=== PATIENT | female | born 1950 | race Caucasian/White ===

== ENCOUNTER 2022-03-15 06:27 | Day surgery (SDC) | payer OTHER ==
[2022-03-15] MEDS ORDERED: NA CHLORIDE 0.9% 1,000 ML ONE (06:46)
[2022-03-15] MEDS ORDERED: CEFAZOLIN 3 GM in NA CHLORIDE 0.9% 100 ML IVPB SCH (07:00)
[2022-03-15] MEDS ORDERED: propofoL 200 MG/20 ML VIAL IV ONE (07:05)
[2022-03-15] MEDS ORDERED: FENTANYL CITR 100 MCG/2 ML ONE (07:05)
[2022-03-15] MEDS ORDERED: ROCURONIUM 50 MG/5 ML VIAL IV ONE (07:06)
[2022-03-15] MEDS ORDERED: MIDAZOLAM HCL 2 MG/2 ML INJ ONE (07:06)
[2022-03-15] MEDS ORDERED: dexAMETHasone 4 MG/ML VIAL ONE (07:10)
[2022-03-15] MEDS ORDERED: ONDANSETRON 4 MG/2 ML VIAL ONE ×2 (07:10→10:15)
[2022-03-15] MEDS ORDERED: LIDOCAINE 2% MPF 5 ML VIAL ONE (07:10)
[2022-03-15] MEDS ORDERED: BUPIVACAINE 0.25% PF 30 ML VIAL ONE (07:20)
[2022-03-15] MEDS: BUPIVACAINE 0.25% PF 30 ML VIAL ONE ×3 (08:10→09:10)
[2022-03-15] MEDS ORDERED: Phenylephrine HCl 10 MG/ML 1 ML VIAL ONE (08:34)
[2022-03-15] MEDS ORDERED: KETOROLAC 30 MG/ML INJ ONE (09:15)
--- NOTE | 2022-03-15 09:57 | P.BOP ---
Preoperative diagnosis: refractory OAB Postoperative diagnosis: same Primary procedure: Interstim Stg1, insertion of quadripolar tined lead under fluoro Filer Metal Patterns: NONE,NONE Estimated blood loss: min Specimen: none Findings: Interstim stage 1 Rt S3, external lead exit same side, Prone Anesthesia: General Complications: None Implants: tined quadripolar lead, external connector to neuromodulator Transferred to: Recovery Room Condition: Good
[2022-03-15 10:08] VITALS: O2SAT 96
--- NOTE | 2022-03-15 10:14 | RAD REPORT ---
EXAM DESCRIPTION: RAD - Fluoroscopy <1 Hour - 03/15/2022 9:46 am CLINICAL HISTORY: Device placement central venous catheter placement FINDINGS: Intraoperative fluoroscopy given for Sacral Neural modulation The examination was performed by Dr. Madison Fluoroscopy time 0.7 minutes. Twenty intraoperative fluoroscopic spot images obtained
[2022-03-15 11:20] VITALS: BP 119/66; TEMP 97
[2022-03-15] MEDS ORDERED: GABAPENTIN 300 MG CAP PO SCH (14:00)
[2022-03-15] MEDS ORDERED: HOME MED 1 EA UNK (Metformin Hcl [Metformin Er Gastric] 1,000 MG Tabergr24h) PO SCH (21:00)
[2022-03-15] MEDS ORDERED: icosapent ethyL 1 GM CAP PO SCH (21:00)
--- NOTE | 2022-03-15 21:28 | OP ---
Date of Procedure: 03/15/2022 Surgeon: Estela Hughes MD Salt Washer: None. Preoperative Diagnosis: Refractory overactive bladder. Postoperative Diagnosis: Refractory overactive bladder. Procedures Performed: InterStim nerve stimulation stage I, which is incision and implantation of tin ed quadripolar leads into S3 foramen with fluoroscopic guidance for needle placement. Anesthesia: General endotracheal. Specimen: No specimens. Complications: No complications. Drain: No drains. Estimated Blood Loss: Minimal. Implants: Quadripolar tined-lead and the temporary external connection for the battery. Condition: Stable. Findings: Right S3 foramen was used for the lead placement, all 4 electrodes were working with good liss and plantar flexion of the toe. Leads 2, 3, and 4 which are the 3 distal leads had very good response with toe and liss where as the lead 1 had better toe with no liss at the lower settin g. Position check was done with AP and lateral views and it was optimal. Description Of Procedure: The patient is a 71-year-old female with refractory overactive bladder. S he also has stress urinary incontinence. She has been tried on first and second-line therapy without any response and was offered both Botox as well as sacral neuromodulation. InterStim weighs more be neficial than the Botox with lower risk of retention intermittent self catheterization which patient has done, preferred to avoid, and she consented for the procedure and brought to the OR. A 3 g of An cef were given. SCDs were placed. Consent was re-verified in the preoperative area and the patient was taken back to the procedure room. She was placed in a supine fashion and after general endotrach eal anesthesia was given, she was placed in a prone position on the operating table with the buttocks exposed, as well as the feet. The skin prep was done with ChloraPrep prior to sterile draping. After time-out was done and position check was performed, the procedure were started. The table was set up for fluoroscopic guidance. The C-arm was moved into position in the anterior-posterior direction, and the mapping of the sacral region was performed including the midline of the sacrum, SI joint, sciatic notches and medial forami nal borders, and sacral foramina. Then, it was moved to the lateral position to image the sacral pro montory to the coccyx. The patient was slightly airplaned to her right due to her pannus and the pos itioning. Local 1% lidocaine was injected 10 cc at 2 sites on the left and the right of the S3 area. Surface m arkings were done 9 cm proximal and 11 cm proximal to the coccyx, 2 cm lateral to the midline on both sides. These were the tentative areas for use for needle insertion. The foramen needle was introduced at the 11 cm tommy, 2 cm lateral to the midline feeling for the fora rodrigo margins until foramina was identified and penetrated. The depth of the needle was confirmed an d adjusted fluoroscopically. This appeared to be slightly lower than the S3. This was confirmed by just observation of bellowing without any plantar flexion using the external test stimulator. After attempting to go 2 cm proximal to this needle entry through this end, the needle was placed par allel in the lateral midline to the prior needle. S3 foramen was entered and test stimulation was pe rformed. This was very difficult and that was not an adequate. There was no response either in the liss or the toes. Possible slight rotation of the limb was observed, so went on to the right late ral margin at a similar location as the original needle placement on the left side. Once the fragmen t was entered, AP and lateral views were taken. This appeared to be in position. Testing was performed. There were clear liss bed response and plantar flexion was nonexistent. The needle was removed from the left side and advanced 2 cm proximal to the current needle, and after the S3 foramen was palpated and entered, AP and lateral views were taken. Once the needle tip was a t a good location, testing was performed and there was great response of bellowing, as well as the pl handy flexion on the right side. The needle stylet was then removed and a directional guide was plac ed and confirmed fluoroscopically. The foramen needle was then removed. Incision was made peripherally to the directional guide through the fascial layer. Then, the lead in troducer sheath with dilator was placed over the directional guide, and then, guided into the foramen ensuring radiopaque marker. The introducer did not extend beyond the anterior to the sacrum under d irect fluoroscopy. Dilator was then unlocked and removed along with the directional guide. The lead was then placed through the introducer sheath to the first line. Position was checked fluoroscopica lly. Then, the lead was further introduced until 3 electrodes were visible below the sacrum the four th straddling the anterior surface. Each electrode was tested for location, visualization of liss and plantar flexion of the great toe. After satisfactory positioning was confirmed, the distally sh owing mostly plantar flexion of the toe. The introducer sheath was then retracted under continuous f luoro, deploying the tined leads into the presacral tissue. Further incision was made in the subcutaneous tissue posterior to the iliac crest on the same side of the lead placement which is the right lateral buttock. Injection with lidocaine was done in 2 sides which was the battery side, as well as the exit of the external lead. The incisions were made with a 15 blade. Dissection was performed down to the subcutaneous tissues with the Bovie. Blunt dissect ion was performed. Hemostasis was secured here to create space for the future battery. A tunneling tool with a straw was placed from the lead exit site subcutaneously to the incised pocket site. The tunneling tool was removed and the lead was fed through the straw and pulled out through the pocket site. The lead was then , bodily fluid, dried, and protected and this was place d over the leads. The lead was inserted into the temporary percutaneous extension and the metal band s were aligned. The 4 set screws were tightened with a hex wrench. The boot was pushed over the con nection and 2 passes were sutured to the boot grooves on either side of the connection. A tunnel was made subcutaneously and exited to a puncture site above the contralateral buttock. The percutaneous extension was then placed through the straw and exposed and connected to the Twist-Lock grade cable. The wounds were irrigated with antibiotic solution and water, and closed with the help of 3-0 chromic subcutaneous sutures x2 that are interrupted and continuous running skin sutures that are subcuticular. Counts were correct. Dermabond was placed, 4x4s, gauze. Tegaderm was then applie d over all these incisions and gauze was placed under the Twist-Lock cable connector. EBL was minima l. The patient was transferred to the recovery room in satisfactory condition. Using the external t est stimulator, the patient was programmed to the electric optimal sensation and given instructions o n utilizing the external test stimulator prior to discharge. Diary will be kept until return appoint ment to my office with Monday to discuss results of this test. The patient tolerated the procedure w ell. ARIN/JESSICA Voice ID: [id number] Report ID: [id number]
[2022-03-16] MEDS ORDERED: ESTROGENS,CONJ VAG CREAM VAG SCH (09:00)
[2022-03-16] MEDS ORDERED: HOME MED 1 EA UNK (Linagliptin [Tradjenta] 5 MG Tablet) PO SCH ×2 (09:00)
[2022-03-16] MEDS ORDERED: B2 PO SCH (09:00)
[2022-03-16] MEDS ORDERED: HOME MED 1 EA UNK (Vit D3/Vit K2/Calc Frutoborate [Move Free Ultra-Borate-K2-D3] Tablet) PO SCH (09:00)
[2022-03-16] MEDS ORDERED: ASPIRIN EC 81 MG TAB PO SCH (09:00)
[2022-03-16] MEDS ORDERED: HOME MED 1 EA UNK (Rabeprazole Sodium [Rabeprazole Sodium] 20 MG Tablet.Dr) PO SCH (09:00)
[2022-03-16] MEDS ORDERED: VIT B6 PO SCH (09:00)
[2022-03-16] MEDS ORDERED: LEVOMEFOLATE PO SCH (09:00)
[2022-03-16] MEDS ORDERED: ROSUVASTATIN 10 MG TAB PO SCH (09:00)
[2022-03-16] MEDS ORDERED: HOME MED 1 EA UNK (Potassium Citrate [Potassium] 99 MG Capsule) PO SCH (09:00)
[2022-03-16] MEDS ORDERED: HOME MED 1 EA UNK (Omega-3/Dha/Epa/Fish Oil [Fish Oil 1,000 Mg Softgel] Capsule) PO SCH (09:00)
[2022-03-16] MEDS ORDERED: FUROSEMIDE 40 MG TABLET PO SCH (09:00)
[2022-03-16] MEDS ORDERED: HOME MED 1 EA UNK (Losartan Potassium [Losartan Potassium] 100 MG Tablet) PO SCH (09:00)
[2022-03-16] MEDS ORDERED: VIT B12 PO SCH (09:00)
== END 2022-03-15 11:15 | disposition home or self-care (01) ==
LOC: OR 06:27
PROVIDERS: ATTEND Obstetrics & Gynecology
PROC: 01HY3MZ Insertion of Neurostimulator Lead into Peripheral Nerve, Percutaneous Approach (ICD-10-PCS; principal; 2022-03-15 07:30)
DX: N32.81 Overactive bladder (principal)
CPT/HCPCS: 82947 ×2; 64561; J2704; J1100; J2370; J2001; J2250; J3010; J7030; J2405 ×2; J0690; 76000

== ENCOUNTER 2022-03-29 05:52 | Day surgery (SDC) | payer OTHER ==
[2022-03-29] MEDS ORDERED: NA CHLORIDE 0.9% 1,000 ML ONE (06:11)
[2022-03-29] MEDS ORDERED: FENTANYL CITR 100 MCG/2 ML ONE (06:47)
[2022-03-29] MEDS ORDERED: LIDOCAINE 2% MPF 5 ML VIAL ONE (06:47)
[2022-03-29] MEDS ORDERED: propofoL 200 MG/20 ML VIAL IV ONE ×2 (06:47→07:29)
[2022-03-29] MEDS ORDERED: MIDAZOLAM HCL 2 MG/2 ML INJ ONE (06:47)
[2022-03-29] MEDS: LIDOCAINE 1% 20 ML MDV ONE ×2 (06:51→07:27)
[2022-03-29] MEDS ORDERED: CEFAZOLIN 2 GM in NA CHLORIDE 0.9% 100 ML IVPB SCH (07:00)
[2022-03-29] MEDS ORDERED: CEFAZOLIN 3 GM in NA CHLORIDE 0.9% 100 ML IVPB SCH (07:00)
[2022-03-29] MEDS ORDERED: IBUPROFEN 200 MG TAB PO PRN (08:14)
[2022-03-29] MEDS ORDERED: HYDROCODONE/APAP 5/325 MG TAB PO PRN (08:14)
--- NOTE | 2022-03-29 08:17 | P.BOP ---
Preoperative diagnosis: refractory OAB Postoperative diagnosis: same Primary procedure: Stage 2 Interstim (insertion of neuromodulator)and programming Estimated blood loss: min Specimen: none Findings: posket on the right buttock, lead same side Anesthesia: MAC Complications: None Implants: Interstim neuromodulator Transferred to: Recovery Room Condition: Good
[2022-03-29] MEDS ORDERED: IBUPROFEN 400 MG TAB ONE (08:31)
[2022-03-29] MEDS ORDERED: IBUPROFEN 200 MG TAB PO ONE (08:31)
[2022-03-29] MEDS ORDERED: HOME MED 1 EA UNK (Potassium Citrate [Potassium] 99 MG Capsule) PO SCH (09:00)
[2022-03-29] MEDS ORDERED: HOME MED 1 EA UNK (Vit D3/Vit K2/Calc Frutoborate [Move Free Ultra-Borate-K2-D3] Tablet) PO SCH (09:00)
[2022-03-29] MEDS ORDERED: HOME MED 1 EA UNK (Metformin Hcl [Metformin Er Gastric] 1,000 MG Tabergr24h) PO SCH (09:00)
[2022-03-29] MEDS ORDERED: ESTROGENS,CONJ VAG CREAM VAG SCH (09:00)
[2022-03-29] MEDS ORDERED: GABAPENTIN 300 MG CAP PO SCH (09:00)
[2022-03-29] MEDS ORDERED: HOME MED 1 EA UNK (Linagliptin [Tradjenta] 5 MG Tablet) PO SCH ×2 (09:00)
[2022-03-29] MEDS ORDERED: B2 PO SCH (09:00)
[2022-03-29] MEDS ORDERED: ROSUVASTATIN 10 MG TAB PO SCH (09:00)
[2022-03-29] MEDS ORDERED: HOME MED 1 EA UNK (Omega-3/Dha/Epa/Fish Oil [Fish Oil 1,000 Mg Softgel] Capsule) PO SCH (09:00)
[2022-03-29] MEDS ORDERED: LEVOMEFOLATE PO SCH (09:00)
[2022-03-29] MEDS ORDERED: HOME MED 1 EA UNK (Losartan Potassium [Losartan Potassium] 100 MG Tablet) PO SCH (09:00)
[2022-03-29] MEDS ORDERED: icosapent ethyL 1 GM CAP PO SCH (09:00)
[2022-03-29] MEDS ORDERED: VIT B6 PO SCH (09:00)
[2022-03-29] MEDS ORDERED: VIT B12 PO SCH (09:00)
[2022-03-29] MEDS ORDERED: FUROSEMIDE 40 MG TABLET PO SCH (09:00)
[2022-03-29] MEDS ORDERED: HOME MED 1 EA UNK (Rabeprazole Sodium [Rabeprazole Sodium] 20 MG Tablet.Dr) PO SCH (09:00)
[2022-03-29] MEDS ORDERED: ASPIRIN EC 81 MG TAB PO SCH (09:00)
[2022-03-29 09:10] VITALS: TEMP 97.9
[2022-03-29 09:11] VITALS: BP 120/58; O2SAT 100
--- NOTE | 2022-03-29 19:32 | OP ---
Date of Procedure: 03/29/2022 Surgeon: Estela Hughes MD Biostatistician: None. Preoperative Diagnosis: Refractory overactive bladder. Postoperative Diagnosis: Refractory overactive bladder. Procedure Performed: InterStim stage II incision and subcutaneous implantation of sacral nerve neuro stimulator with electronic analysis and programming. Anesthesia: MAC and local block. Complications: None. Specimen: None. Drains: None. Condition: Stable. Implants: InterStim neuromodulator. The patient's condition was good. Indications: The patient is a 71-year-old female with refractory overactive bladder. She had failed to have optimal treatment outcome after first and second line treatments for the overactive bladder. She underwent stage I and this was 2 weeks after the stage I where she had at least 75% improvement and wanted to proceed with stage II. She was consented and brought to the OR. Procedure In Detail: Ancef was given. SCDs were placed. After she was taken to the operating room and placed in a supine fashion on the operating table, MAC was given and she was placed in a prone po sition. Her back was prepped with ChloraPrep and draped in a sterile fashion. 1% lidocaine was used for local injection. The previous buttock pocket on the right buttock was opened using blunt dissection. After getting to the previous pocket, which appeared to be significantly more scarred, likely because of the 2 weeks' duration for her trial, was carefully opened up. Hemostasis was secured with electrocautery. The lead and percutaneous extension connections were identified and elevated. The percutaneous exten victor m was cut and removed from the field ensuring sterility. The subcutaneous pocket anterior to the muscle surface was enlarged and hemostasis was established again. The sutures holding the protective boot were cut and the protective boot was retracted. The set screws were exposed and loosened with a hex wrench and the boot was removed and discarded. The lead was cleansed off any body fluid and dried. The lead was inserted into the header of the Int erStim neuromodulator until the blue tip was visualized at the distal window. The single set screw w as tightened with 3 clicks. The neurostimulator was placed in a subcutaneous pocket with the etched identification side placed up wards and the excessive lead wrapped counterclockwise around the neurostimulator posteriorly. The pr ogramming head was placed over the implanted neurostimulator in a sterile cover to ensure adequate le ad connection and that the parameters are within normal limits. Impedances were confirmed to be with in normal limits greater than 50 and less than 4000. The wound was irrigated with antibiotic solution and water before the device was inserted and then th e pocket was closed with the help of a running 4-0 Vicryl suture and the skin was closed with a runni ng 4-0 Vicryl subcuticular sutures. Counts were correct. Steri-Strips were placed. 4 x 4 gauzes we re placed over the incision. The areas of all 3 incisions have slight erythema in the area that Derm abond was placed and almost looked like a local allergic reaction to this. So no plan to place [place] hernandez on the site there. The external stimulator was connected. This was closed with a simple 0 Vicr yl stitch without suture externally and this could be cut if need be at 2 to 3 weeks' postop. EBL was minimal. The patient was transferred to the recovery room in satisfactory condition. Using the clinician nicolás garcía, the generator was programmed for the pulse amplitude with 0.8 and the settings will be entere d into the clinic check. The total time spent for programming was less than 30 minutes. The patient was given instructions on utilizing the patient multimedia programmer prior to discharge. Final electrode sett ings are programmed for 0.8 amplitude. She has a 1-week follow in the office. Bladder log instructi ons were given appropriately. Local care was reviewed with the patient in 48 hours without showering and she will call with any questions. The procedure was discussed with the patient and her after she was awake. ARIN/JESSICA Voice ID: [id number] Report ID: [id number]
== END 2022-03-29 08:58 | disposition home or self-care (01) ==
LOC: OR 05:52
PROVIDERS: ATTEND Obstetrics & Gynecology
PROC: 0JH73BZ Insertion of Single Array Stimulator Generator into Back Subcutaneous Tissue and Fascia, Percutaneous Approach (ICD-10-PCS; principal; 2022-03-29 07:00)
DX: N32.81 Overactive bladder (principal); N39.3 Stress incontinence (female) (male); I10 Essential (primary) hypertension; E11.9 Type 2 diabetes mellitus without complications; E78.00 Pure hypercholesterolemia, unspecified
CPT/HCPCS: 82947; 64590; J2704 ×2; J2001 ×2; J2250; J3010; J7030; J0690

== ENCOUNTER 2022-04-19 10:58 | Observation (INO) | payer OTHER ==
[2022-04-14 12:09] LABS: Absolute Lymphocytes (CBC) 1.9 K/uL (0.7-4.9); Hematocrit 37.8 % (36.0-45.0); Lymphocytes % 33.2 % (15.3-44.8); MPV 8.5 fL (7.6-11.3)
[2022-04-14 12:13] LABS: Protime INR 0.96
[2022-04-14 12:22] LABS: Potassium 3.9 mmol/L (3.5-5.1)
[2022-04-14 12:36] LABS: Urine Bacteria None Seen /HPF (<20); Urine Bilirubin NEGATIVE (Negative); Urine Blood 1+ (Negative); Urine Clarity Clear (Clear); Urine Color Light-Yellow (Yellow); Urine Glucose NEGATIVE (Negative); Urine Mucus Slight /HPF (None Seen); Urine Protein 2+ (Negative); Urine RBC <5 /HPF (None Seen); Urine Urobilinogen Normal (Normal)
[2022-04-18 14:15] LABS: SARS-CoV-2 Antigen Rapid Res Negative (Negative)
[2022-04-19] MEDS ORDERED: NA CHLORIDE 0.9% 1,000 ML ONE (12:06)
[2022-04-19] MEDS ORDERED: propofoL 200 MG/20 ML VIAL IV ONE (12:13)
[2022-04-19] MEDS ORDERED: LIDOCAINE 2% MPF 5 ML VIAL ONE (12:13)
[2022-04-19] MEDS ORDERED: NS 0.9% VIAL 10 ML ONE (12:14)
[2022-04-19] MEDS ORDERED: VECURONIUM 10 MG/VIAL IV ONE (12:14)
[2022-04-19] MEDS ORDERED: FENTANYL CITR 250 MCG/5 ML ONE (12:14)
[2022-04-19] MEDS ORDERED: CEFAZOLIN SODIUM 1 GM/VIAL ONE (12:19)
[2022-04-19] MEDS ORDERED: NA CHLORIDE 0.9% 100 ML ONE (12:19)
[2022-04-19] MEDS ORDERED: VASOPRESSIN 20 UNIT/ML VIAL ONE (12:20)
[2022-04-19] MEDS ORDERED: SCOPOLAMINE HYDROBROMIDE PATCH TD ONE (12:24)
[2022-04-19] MEDS: CEFAZOLIN 3 GM in NA CHLORIDE 0.9% 100 ML IVPB SCH ×2 (12:40→13:42)
[2022-04-19] MEDS ORDERED: dexAMETHasone 10 MG/ML VIAL ONE (13:08)
[2022-04-19] MEDS ORDERED: KETOROLAC 30 MG/ML INJ ONE ×2 (13:08→15:48)
[2022-04-19] MEDS ORDERED: ONDANSETRON 4 MG/2 ML VIAL ONE (13:13)
[2022-04-19] MEDS ORDERED: PROMETHAZINE INJ 25 MG/ML AMP IV PRN (15:52)
[2022-04-19] MEDS ORDERED: ACETAMINOPHEN 500 MG TAB PO PRN (15:52)
[2022-04-19] MEDS ORDERED: GLUCAGON 1 MG/VIAL IM PRN (15:56)
--- NOTE | 2022-04-19 16:04 | P.BOP ---
Preoperative diagnosis: cystocele, rectocele, HUGH Postoperative diagnosis: stage 3 uterine/posterior wall defect, perineocele, post enterocele, HUGH Primary procedure: B/l SSLF post approach cervico-colpopexy, post wall+enterocele repairs Secondary procedure: biologic graft aug in post wall and apex, TO-MUS, perineocele repair,cysto Manager Cleaning: Coby Lobo Estimated blood loss: 150, UO 200 Specimen: none Findings: -2/-3/-6/5/thin/9/0/+1/-2, Y shaped graft sutured to cervix, b/l SSL Anesthesia: General Complications: None Drain(s): Urinary catheter Implants: coloplast graft , TVT-O Fluids & blood products: 1000LR Transferred to: Recovery Room Condition: Good
--- OUTSIDE RECORDS SUMMARY | 2022-04-19 16:37 | XMS REPORT | Continuity of Care Document ---
:1950 Author Organization [facility] t Address [address] [place] [address] Care Team Providers Name Role Phone Derrick Aguilar MD Primary Care Physician Jay Cardoza Attending Clinician Zacarias Kapadia Attending Clinician ZACARIAS KAPADIA Attending Clinician Unavailable Ranjit Kim Attending Clinician TAYLOR WEBB Attending Clinician Unavailable JACOBO MELGAR Attending Clinician Unavailable MD TAYLOR WEBB HARITHA Attending Clinician Unavailable Maik Kwan Attending Clinician Jay Cardoza Admitting Clinician TAYLOR WEBB Admitting Clinician Unavailable MD TAYLOR WEBB Admitting Clinician Unavailable Maik Kwan Admitting Clinician Problems Condition Condition Condition Status Onset Resolution Last Treating Co mments Source Name Details Category Date Date Treatment Clinician Date UNK UNK Diagnosis Active 2021-05-04 Mem oria Active 04-21 08:45:00 l 04/21/2021 00:00: [place] davidson [facility] 00 Kiel CYSTOSCOPY CYSTOSCOP Diagnosis Active 2021-05-12 Memoria BLADDER Y BLADDER 04-21 11:06:00 l TUMOR TUMOR 00:00: [place] RESECTION RESECTION 00 Active 04/21/2021 [facility] Arthritis Arthritis Disease Active Overview: Methodi of of -[address] carpometac carpometac 00:00: g of this Hospita arpal arpal 00 note l (CMC) (CMC) might be joint of joint of different right right from the thumb thumb original. Added automatic ally from request for surgery [id number] Third Third Disease Active Methodi degree degree 8-14 st hemorrhoid hemorrhoid 00:00: Ho spita s s 00 l Diabetes Diabetes Problem Active 2021-10-08 Memoria mellitus mellitus - 07:02:06 l (disorder) (disorder) 00:00: He rmann Active 00 03/06/2014 Problem 10/08/2021 States well controlled does not check glucose at home Medical Group,[facility] her Neuro,[facility] ,[facility] Hypertensi Hypertens Problem Active 2021-10-08 Memoria ve eboni 03-06 07:02:06 l disorder, disorder, 00:00: Herm carol systemic systemic 00 arterial arterial (disorder) (disorder) Active 03/06/2014 Problem 10/08/2021 Well Controlled with medication Medical Group,[facility] her Neuro,[facility] ,[facility] Sleep Sleep Problem Active 2021-10-08 Memor ia apnea apnea 1 07:02:06 l (finding) (finding) 00:00: Herm carol Active 00 03/06/2005 Problem 10/08/2021 Uses CPAP [facility] Abnormal Abnormal Problem 2019-02-07 Memoria results of results of 05:02:19 l liver liver [place]iel function function studies studies 02/07/2019 [facility] Backache Backache Problem Active 2021-10-08 Memoria (finding) (finding) 07:02:06 l Active Kiel Problem 10/08/2021 [facility] Colon Colon Problem Active 2021-10-08 Memor ia neoplasm neoplasm 07:02:06 l screening screening Herm carol (procedure (procedure ) ) Active Problem 10/08/2021 [facility] Polyp of Polyp of Problem Active 2021-10-08 Memoria colon colon 07:02:06 l (disorder) (disorder) Andrew rmann Active Problem 10/08/2021 [facility] Diarrhea Diarrhea Problem Active 2021-10-08 Memoria (finding) (finding) 07:02:06 l Active Kiel Problem 10/08/2021 [facility] Diuretic Diuretic Problem Active 2021-10-08 Memoria therapy therapy 07:02:06 l (procedure (procedure He rmann ) ) Active Problem 10/08/2021 [facility] Anasarca Anasarca Problem Active 2021-10-08 Memoria (morpholog (morpholog 07:02:06 l ic ic [place] abnormalit abnormalit y) y) Active Problem 10/08/2021 [facility] Gastroesop Gastroeso Problem Active 2021-10-08 Memoria hageal phageal 07:02:06 l reflux reflux [place] disease disease (disorder) (disorder) Active Problem 10/08/2021 Medical Group,[facility] ,[facility] Hemorrhoid Problem Active 2021-10-08 M emoria s Hemorrhoid 07:02:06 l (disorder) s [place] (disorder) Active Problem 10/08/2021 [facility] Hyperchole Hyperchol Problem Active 2021-10-08 Memoria sterolemia esterolemi 07:02:06 l (disorder) a [place] (disorder) Active Problem 10/08/2021 States no longer taking medication due to side effects [facility] Rectal Rectal Problem Active 2021-10-08 Cesar mika hemorrhage hemorrhage 07:02:06 l (disorder) (disorder) He rmann Active Problem 10/08/2021 [facility] Amnesia Amnesia Problem Active 2021-06-17 Me moria (finding) (finding) 02:44:38 l Active Kiel Problem 06/17/2021 Medical Group,[facility] her Neuro,[facility] Cervical Cervical Problem Active 2021-06-17 Memoria radiculopa radiculopa 02:44:38 l thy thy [place]iel (disorder) (disorder) Active Problem 06/17/2021 Medical Group,[facility] her Neuro,[facility] Hyperlipid Problem Active 2021-06-17 M emoria emia Hyperlipid 02:44:38 l (disorder) emia [place] (disorder) Active Problem 06/17/2021 Medical Group,[facility] her Neuro,[facility] Mass of [place] of Problem Active 2021-06-17 Me moria urinary urinary 02:44:38 l bladder bladder [place] (finding) (finding) Active Problem 06/17/2021 Medical Group,[facility] her Neuro,[facility] Morbid Morbid Problem Active 2021-06-17 Cesar mika obesity obesity 02:44:38 l (disorder) (disorder) He rmann Active Problem 06/17/2021 Medical Group,[facility] her Neuro,[facility] Paresthesi Paresthes Problem Active 2021-06-17 Memoria a ia 02:44:38 l (finding) (finding) Herm carol Active Problem 06/17/2021 Medical Group,[facility] her Neuro,[facility] Recurrent Recurrent Problem Active 2021-06-17 Memoria urinary urinary 02:44:38 l tract tract [place] infection infection (disorder) (disorder) Active Problem 06/17/2021 Medical Group,[facility] her Neuro,[facility] Cystitis Cystitis Problem Active 2021-06-17 Memoria glandulari glandulari 02:44:38 l s s Kiel (disorder) (disorder) Active Problem 06/17/2021 Medical [facility] Obese Obese Problem Active 2021-06-17 Memor ia class II class II 02:44:38 l (finding) (finding) Herm carol Active Problem 06/17/2021 [facility] Active 2021-06-17 M emoria e sleep Obstructiv 02:44:38 l apnea e sleep Kiel syndrome apnea (disorder) syndrome (disorder) Active Problem 06/17/[address] [facility] Diabetes Diabetes Problem Active 2021-06-17 Memoria mellitus mellitus 02:44:38 l type 2 type 2 Kiel (disorder) (disorder) Active [facility] History of Past Illness Condition Condition Condition Status Onset Resolution Last Treating Co mments Source Name Details Category Date Date Treatment Clinician Date Other Other Problem 2021-05-10 2021-05-10 M emoria specified specified - 08:18:36 08:18:36 l disorders disorders 14:11: Herm carol of bladder of bladder 00 2 05/10/2021 [facility] Hemorrhage Hemorrhag Problem 2018-10-03 2018-10-03 Memoria of anus e of anus 10-01 04:01:22 04:01:22 l and rectum and rectum 05:00: He rmann 00 9 10/03/2018 [facility] Allergies, Adverse Reactions, Alerts This patient has no known allergies or adverse reactions. Family History Family Member Diagnosis Comments Start Date Stop Date Source Natural brother Stroke [facility] mother Cancer [facility] mother Diabetes [facility] Natural sister Blood Clots [facility] sister Diabetes [facility] Stroke [facility] Social History Social Habit Start Date Stop Date Quantity Comments Source Social History 2021-04-29 2021-04-29 [facility] matt 21:56:05 21:56:05 Alcohol intake 2019-11-12 2019-11-12 Current drinker of [facility] 00:00:00 00:00:00 alcohol (finding) Hospita l Alcohol Comment 2019-09-03 2019-09-03 occasional [facility] Tobacco use and 2019-07-16 2019-07-16 Smokeless tobacco [facility] exposure 00:00:00 00:00:00 non-user Hospital Sex Ass[birth year] At [birth year] [facility] 00:[facility]00 Hospital Smoking Status Start Date Stop Date Source Never smoked tobacco [facility] Social History 2018-09-26 13:00:47 2018-09-26 13:00:47 [facility] Medications Ordered Filled Start Stop Current Ordering Indication Dosage Frequency Signature Comments Components Source Medication Medication Date Date Medication? Clinician (SIG) Name Name Glenroy 2021-0 No 61,200 mg Me moria 10-07 = 100 mL, l 15:00: Injection, IV Push, Once, first dose 10/07/21 10:00:00 CDT, stop date 10/07/21 10:00:00 CDT Smoothie 2021-0 No 450 mL, Memori a Readi-Cat 2 - Susp, l 15:00: Oral, Once, first dose 10/07/21 10:00:00 CDT, stop date 10/07/21 10:00:00 CDT, Out-Patien t Saline Lock 2021- Yes 10 mL, Cesra mika Flush 10-07 Soln, IV l 14:54: Push, As Indicated PRN for flush, first dose 10/07/21 9:54:00 CDT Pyridium 2021-0 No Notes: Memoria 3-04 Give with l 16:00: meals. (Same as: Pyridium) Pyridium 0 No Notes: Memoria 3-04 Give with l 14:36: meals. (Same as: Pyridium) rocuronium No Route: IV, M emoria (ANES) 05-07 Drug form: l 14:24: INJ, ONCE, Stop date: 05/07/21 8:24:00 [employer] fentaNYL 2021-0 No Route: IV, Mem oria (ANES) 05-07 Drug form: l 14:24: INJ, ONCE, Stop date: 05/07/21 8:24:00 [employer] sugammadex No Route: IV, M emoria (ANES) - Drug form: l 14:24: SOLN, ONCE, Stop date: 05/07/21 8:24:00 [employer] lidocaine 2021- No Route: IV, Me moria (ANES) 05-07 Drug form: l 14:20: INJ, ONCE, Stop date: 05/07/21 8:20:00 [employer] propofol 2021-0 No Route: IV, Mem oria (ANES) - Drug form: l 14:20: INJ, ONCE, Stop date: 05/07/21 8:20:00 [employer] metoclopram No Route: IV, Memoria jolene (ANES) 05-07 Drug form: l 14:20: INJ, ONCE, Stop date: 05/07/21 8:20:00 [employer] ondansetron No Route: IV, Memoria (ANES) 3- Drug form: l 14:20: INJ, ONCE, Stop date: 05/07/21 8:20:00 [employer] midazolam 2021- No Route: IV, Me moria (ANES) 3- Drug form: l 14:15: SOLN, 00 ONCE, Stop date: 05/07/21 8:15:00 [employer] acetaminoph Yes 1,000 mg = Memoria en 500 mg 05-07 2 tab, PO, l oral 14:12: TID, not Kiel tablet. 00 to exceed 3000 mg/day Take 3 times a day for 3 days, then take three times a day as needed for pain., X 3 day, # 18 tab, 0 Refill(s), Pharmacy: [facility] #[id number], 167.64, cm, 05/04/21 11:17:00 [employer], Height, 108... Docusate Yes 100 mg = 1 Mem oria Sodium 100 3-04 cap, PO, l MG Oral 14:12: BID, # 60 Lorraine nn Capsule 00 cap, 0 [Colace] Refill(s), Pharmacy: [facility] #[id number], 167.64, cm, 05/04/21 11:17:00 [employer], Height, 108.227, kg, 05/04/21 11:17:00 [employer], Weight Phenazopyri Yes 200 mg = 1 Memoria dine 3-04 tab, PO, l hydrochlori 14:12: TID, PRN He rmann de 200 MG 00 Dysuria, X Oral Tablet 4 day, # [Pyridium] 12 tab, 0 Refill(s), Pharmacy: [facility] #[id number], 167.64, cm, 05/04/21 11:17:00 [employer], Height, 108.227, kg, 05/04/21 11:17:00 [employer], Weight oxybutynin Yes 5 mg = 1 Mem oria 5 mg oral 3-04 tab, PO, l tablet 14:12: TID, PRN [place] 00 Other-See Comments, Bladder spasm, # 30 tab, 0 Refill(s), Pharmacy: [facility] #[id number], 167.64, cm, 05/04/21 11:17:00 [employer], Height, 108.227, kg, 05/04/21 11:17:00 [employer], Weight ciprofloxac No Route: IV, Memoria in (ANES) 2 05-07 Drug form: l mg 13:35: INJ, Start Kiel 00 date: 05/07/21 7:35:00 [employer], Stop date: 05/07/21 8:35:00 [employer] Lactated 2022-0 No Route: IV, Mem oria Ringers 3-04 Total l Injection 12:43: Volume: Lorraine nn IV (ANES) 00 1,000, 1000 mL Start date: 05/07/21 6:43:00 [employer], Stop date: 05/07/21 7:43:00 [employer] Lactated No 1,000 mL, Cesar mika Ringers IV 3- Rate: 75 l 1,000 mL 12:37: ml/hr, Kiel 00 Infuse over: 13.3 hr, Route: IV, Dosing Weight 108.227 kg, Total Volume: 1,000, Start date: 05/07/21 6:37:00 [employer], Duration: 30 day, Stop date: 06/06/21 6:36:00 CDT, BSA: 2.28 m2, 0 Calcium No 1,000 mL, Memor ia Chloride 05-07 Rate: 75 l 0.0014 12:36: ml/hr, [place] MEQ/ML / 00 Infuse Potassium over: 13.3 Chloride hr, Route: 0.004 IV, Dosing MEQ/ML / Weight Sodium 108.227 Chloride kg, Total 0.103 Volume: MEQ/ML / 1,000, Sodium Start Lactate date: 0.028 05/07/21 MEQ/ML 6:36:00 Injectable [employer], Solution Duration: 30 day, Stop date: 06/06/21 6:35:00 CDT, BSA: 2.28 m2, 0 Estrogens, Yes 1 appl, Cesar mika Conjugated 2-24 VAG, l (SKILLED NURSING) 0.625 22:00: Bedtime Her kunz MG/ML 00 Vaginal Cream [Premarin] losartan Yes 100 mg = 1 Mem oria 100 mg oral 2-24 tab, PO, l tablet 21:59: Daily, 0 [place] 00 Refill(s) Metoprolol Yes 50 mg = 1 Me moria Succinate 8-11 tab, PO, l ER 50 mg 14:25: Daily, # Lorraine nn oral 00 30 tab, 0 tablet, Refill(s) extended release Piroxicam Yes 20 mg, PO, Me moria 2-02 Daily, 0 l 16:10: Refill(s) [place] 00 Aspirin Yes 81 mg, PO, Cesar mika 1-05 Daily, 0 l 15:48: Refill(s) meloxicam Yes 15 mg, PO, Me moria 1-05 Daily, 0 l 15:48: Refill(s) Vascepa Yes 2 gm, PO, Memor ia 1-05 BID, 0 l 15:48: Refill(s) Tradjenta Yes 5 mg, PO, Mem oria 1-05 Daily, 0 l 15:48: Refill(s) Metformin Yes 1,000 mg, Mem oria 1-05 PO, BID, 0 l 15:48: Refill(s) Losartan Yes 50 mg, PO, Mem oria 1-05 Daily, 0 l 15:48: Refill(s) gabapentin Yes 600 mg, Cesar mika 1-05 PO, BID, 0 l 15:48: Refill(s) rosuvastati Yes 10 mg, PO, Memoria n 1-05 Daily, 0 l 15:48: Refill(s) rabeprazole Yes 20 mg, PO, Memoria 1-05 Daily, 0 l 15:48: Refill(s) Furosemide Yes 40 mg, PO, M emoria 1-05 Daily, 0 l 15:48: Refill(s) Vitamin Yes 1,000 Memoria B-12 1000 1-05 microgram l mcg oral 15:48: = 1 tab, Lorraine nn tablet 00 PO, Daily, 0 Refill(s) Vitamin D3 Yes PO, 0 Memori a 1-05 Refill(s) l 15:48: aspirin Yes 81mg QD Take 81 mg Meth soni (ECOTRIN) 09-[address] 81 MG 13:01: daily. Hospita enteric 59 l coated tablet gabapentin 2019- Yes 1{capsu Q8H Take 1 Me thodi (NEURONTIN) 09-04 le} capsule by st 300 mg 13:01: mouth Hospita capsule 59 every 8 l (eight) hours. cholecalcif 2020-0 Yes Take by Met sam rajan, 7-[address] vitamin D3, 13:01: Hospit a (VITAMIN D3 59 l ORAL) MULTIVITAMI 2020-0 Yes Take by Met hodi N ORAL 7-[address] 13:01: Hospita 59 l icosapent 2020-0 Yes Take by Metho di ethyl 7-[address] (VASCEPA 13:01: Hospita ORAL) 59 l metFORMIN 2020-0 Yes 1000mg Q.5D Take 1,000 Methodi (GLUCOPHAGE 7-[address] ) 1,000 mg 13:01: mouth 2 Hosp gracia tablet 58 (two) l times a day with meals. losartan 2020-0 Yes 100mg QD Take 100 Meth soni (COZAAR) 7-[address] 100 MG 13:01: mouth Hospita tablet 58 daily. l metoprolol 2020-0 Yes 50mg QD Take 50 mg M ethodi succinate [address] XL 13:01: daily. Hospita (TOPROL-XL) 58 l 50 mg 24 hr tablet rosuvastati 2020-0 Yes 10mg QD Take 10 mg Methodi n (CRESTOR) 7-[address] 10 MG 13:01: daily. Hospita tablet 58 l RABEprazole 2020-0 Yes 20mg QD Take 20 mg Methodi (ACIPHEX) [address] 20 mg EC 13:01: daily. Hospita tablet 58 l furosemide 2020-0 Yes 40mg Q.5D Take 40 mg M ethodi (LASIX) 40 7-[address] mg tablet 13:01: (two) Hospita 58 times a l day. conjugated 2020-0 Yes QD Insert Metho di estrogens 09-[address] (PREMARIN) 13:01: vagina Hospi ta 0.625 58 daily. l mg/gram vaginal cream potassium 2020-0 Yes Take by Metho di 99 mg 7-[address] tablet 13:01: Hospita 58 l Misc 2019-0 No 700 mL, Memoria Medication 10-01 Soln-IV, l 15:33: IV, Once, [place] 00 first dose 10/01/18 10:33:00 CDT, stop date 10/01/18 10:33:00 CDT Diazepam 2 2019-0 No 2 mg = 1 Mem oria MG Oral 7-29 tabs, l Tablet 15:16: Oral, TID, Lorraine nn [Valium] 00 PRN muscle spasms, X 10 days, # 30 tabs, 0 Refill(s) Acetaminoph 2019-0 No 1 tabs, Mem oria en 300 MG / 7-29 Oral, l Codeine 15:16: q4hr, PRN Lorraine nn Phosphate 00 for pain, 30 MG Oral X 10 days, Tablet # 60 tabs, [Tylenol 0 with Refill(s) Codeine #3] Methocarbam 2019- No 500 mg = 1 Memoria ol 500 MG 7-29 tabs, l Oral Tablet 15:16: Oral, QID, [place] [Robaxin] 00 X 10 days, # 40 tabs, 0 Refill(s), Pharmacy: [facility] #[id number] Robaxin 500 2018- No 500 mg = 1 Memoria mg oral 7-29 tabs, l tablet 15:16: Oral, QID, Lorraine nn 00 X 10 days, # 40 tabs, 0 Refill(s), Pharmacy: [facility] #[id number] Tylenol 2018- No 1 tabs, Memoria with 7-29 Oral, l Codeine #3 15:16: q4hr, PRN He rmann oral tablet 00 for pain, X 10 days, # 60 tabs, 0 Refill(s) Valium 2 mg 2019- No 2 mg = 1 Me moria oral tablet 7-29 tabs, l 15:16: Oral, TID, Kiel 00 PRN muscle spasms, X 10 days, # 30 tabs, 0 Refill(s) Metronidazo 2018- No 250 mg = 1 Memoria le 250 MG 7-29 tabs, l Oral Tablet 15:15: Oral, Lorraine nn [Flagyl] 00 q8hr, # 30 tabs, 0 Refill(s), Pharmacy: [facility] #[id number] ketorolac 2018- No 10 mg = 1 Mem oria 10 mg oral 7-29 tabs, l tablet 15:15: Oral, TID, Lorraine nn 00 PRN for pain, X 5 days, # 15 tabs, 0 Refill(s), Pharmacy: [facility] #[id number] Flagyl 250 2019-0 No 250 mg = 1 M emoria mg oral 7-29 tabs, l tablet 15:15: Oral, q8hr, # 30 tabs, 0 Refill(s), Pharmacy: [facility] #[id number] fentaNYL 2019-0 No 50 mcg = 1 Mem oria 7-29 mL, l 15:10: Injection, IV, Once, first dose 10/01/18 10:10:00 CDT, stop date 10/01/18 10:10:00 CDT Saline Lock 2018-0 No 10 mL, Cesar mika Flush 10-01 Soln, IV l 15:06: Push, As Indicated PRN for flush, first dose 10/01/18 10:06:00 CDT LR 1,000 mL 2018-0 No 1,000 mL, M emoria 7- IV, 75 l 15:06: mL/hr, start date 10/01/18 10:06:00 CDT Dilaudid 2018-0 No 0.5 mg = Memor ia -29 0.5 mL, l 15:06: Injection, IV Push, q10min PRN for pain severe (7-10), first dose 10/01/18 10:06:00 CDT Demerol HCl 2018-0 No 12.5 mg = M emoria 7-29 0.5 mL, l 15:06: Injection, IV Push, Once PRN for shivers, first dose 10/01/18 10:06:00 CDT Promethazin 2019-0 No 12.5 mg = M emoria e 7-29 0.5 mL, l 15:06: Injection, IM, Once PRN for vomiting, first dose 10/01/18 10:06:00 CDT Ondansetron 2018-0 No 4 mg = 2 Me moria 7-29 mL, l 15:06: Injection, IV Push, q15min PRN for nausea, order duration: 2 doses, first dose 10/01/18 10:06:00 CDT, stop date Limited # of times Levalbutero 2019-0 No 0.63 mg = M emoria l 0.21 7-29 3 mL, l MG/ML 15:06: Soln, NEB, [place] Inhalant 00 Once PRN Solution for [Xopenex] wheezing, first dose 10/01/18 10:06:00 CDT Hydralazine 2019-0 No 10 mg = Mem oria 7-29 0.5 mL, l 15:06: Injection, [place] 00 IV Push, As Indicated PRN for hypertensi on, first dose 10/01/18 10:06:00 CDT Labetalol 2019-0 No 5 mg = 1 Cesar mika 7-29 mL, l 15:06: Injection, [place] 00 IV Push, As Indicated PRN for hypertensi on, first dose 10/01/18 10:06:00 CDT Diphenhydra 2019-0 No 25 mg = Mem oria mine 7-29 0.5 mL, l 15:06: Injection, [place] 00 IV Push, Once PRN for itching, first dose 10/01/18 10:06:00 CDT fentaNYL 2019-0 No 50 mcg = 1 Mem oria 7-29 mL, l 14:52: Injection, Kiel 00 IV, Once, first dose 10/01/18 9:52:00 CDT, stop date 10/01/18 9:52:00 CDT propofol 2019-0 No 200 mg = Memor ia 7-29 20 mL, l 14:45: Emulsion, Kiel 00 IV, Once, first dose 10/01/18 9:45:00 CDT, stop date 10/01/18 9:45:00 CDT lidocaine 2019-0 No 40 mg = 2 Mem oria 7-29 mL, l 14:45: Injection, [place] 00 IV, Once, first dose 10/01/18 9:45:00 CDT, stop date 10/01/18 9:45:00 CDT fentaNYL 2019-0 No 50 mcg = 1 Mem oria 7-29 mL, l 14:44: Injection, Kiel 00 IV, Once, first dose 10/01/18 9:44:00 CDT, stop date 10/01/18 9:44:00 CDT ondansetron 2019-0 No 4 mg = 2 Me moria 7-29 mL, l 14:38: Injection, Kiel 00 IV, Once, first dose 10/01/18 9:38:00 CDT, stop date 10/01/18 9:38:00 CDT midazolam 2019-0 No 2 mg = 2 Cesar mika 10-01 mL, l 14:38: Injection, Kiel IV, Once, first dose 10/01/18 9:38:00 CDT, stop date 10/01/18 9:38:00 CDT Lidocaine 2019-0 No 0.2 mL, Memor ia 2% 0.2 mL 10-01 Injection, l IV Start 12:12: [facility]] 00 us, Once PRN for other (see comment), first dose 10/01/18 7:12:00 CDT LR 1,000 mL 2019-0 No 1,000 mL, M emoria 10-01 IV, 30 l 12:12: mL/hr, [place] 00 start date 10/01/18 7:12:00 CDT Losartan 2019-0 Yes 1 tab, Memoria - Oral, l 12:08: Daily, 0 Kiel 00 Refill(s) losartan 2019-0 Yes 1 tab, Memoria 10-01 Oral, l 12:08: Daily, 0 Kiel 00 Refill(s) RABEprazole 2019- Yes 20 mg = 1 M emoria 20 mg oral 7-24 tabs, l delayed 17:21: Oral, Kiel release Daily, tablet GERD Potassium 2018- Yes 99 mg = 1 Mem oria Chloride -24 tabs, l 1.33 MEQ 17:21: Oral, [place] Oral Tablet 00 Daily, Diuretic Therapy 24 HR 2019- Yes 50 mg = 1 Memoria Metoprolol -24 tabs, l Tartrate 50 17:21: Oral, Lorraine nn MG Extended 00 Daily, Release Hypertensi Tablet on Vitamin D3 2018-0 Yes 5,000 Memori a 5000 intl 7-24 IntUnit = l units oral 17:21: 1 tabs, Herm carol tablet 00 Oral, Daily, Supplement Vitamin B12 2018- Yes 1,000 mcg M emoria 1000 mcg 7-24 = 1 tabs, l oral tablet 17:21: Oral, Lorraine nn 00 Daily, Supplement Linagliptin 2019- Yes 5 mg = 1 Me moria 5 MG Oral 7-24 tabs, l Tablet 17:21: Oral, [place] [Tradjenta] 00 Daily, Diabetes Metformin 2019-0 Yes 1,000 mg = Me moria hydrochlori 7-24 1 tabs, l de 1000 MG 17:21: Oral, BID, H ermann Oral Tablet 00 Diabetes Aspirin 81 2019-0 Yes 81 mg = 1 Me moria MG Oral 7-24 tabs, l Tablet 17:21: Oral, [place] 00 Daily, [facility] furosemide 2019-0 Yes 40 mg = 1 Me moria 40 mg oral 7-24 tabs, l tablet 17:21: Oral, [place] 00 Daily, Edema metFORMIN 2019-0 Yes 1,000 mg = Me moria 1000 mg 7-24 1 tabs, l oral tablet 17:21: Oral, BID, [place] 00 Diabetes Tradjenta 5 2019- Yes 5 mg = 1 Me moria mg oral 7-24 tabs, l tablet 17:21: Oral, Kiel 00 Daily, Diabetes metoprolol 2018- Yes 50 mg = 1 Me moria succinate 7-24 tabs, l 50 mg oral 17:21: Oral, [place] tablet, 00 Daily, extended Hypertensi release on aspirin 81 2018-0 Yes 81 mg = 1 Me moria mg oral 7-24 tabs, l tablet 17:21: Oral, [place] 00 Daily, [facility] Vitamin B12 2018- Yes 1,000 mcg M emoria 1000 mcg 7-24 = 1 tabs, l oral tablet 17:21: Oral, Lorraine nn 00 Daily, Supplement potassium 2018- Yes 99 mg = 1 Mem oria chloride 99 7-24 tabs, l mg oral 17:21: Oral, [place] tablet 00 Daily, Diuretic Therapy linaGLIPtin 2019-0 Yes 5 mg = 1 Me thodi (TRADJENTA) 7-24 tabs, st 5 mg tablet 00:00: Oral, Hospi ta 00 Daily, l Diabetes cyanocobala 2019-0 Yes 1,000 mcg M ethodi min 7-24 = 1 tabs, st (VITAMIN 00:00: Oral, Hospita B-12) 1000 00 Daily, l MCG tablet Supplement Vital Signs Vital Name Observation Time Observation Value Comments Source Respitory Rate 2021-05-07 15:30:00 Tona Funk Systolic (mm Hg) 2021-05-07 15:30:00 Cesar Dyson Diastolic (mm Hg) 2021-05-07 15:30:00 Mem orial [place] Respitory Rate 2021-05-07 15:15:00 Memori al [place] Systolic (mm Hg) 2021-05-07 15:15:00 Cesar rial [place] Diastolic (mm Hg) 2021-05-07 15:15:00 Mem orial [place] Respitory Rate 2021-05-07 15:00:00 Memori al Kiel Systolic (mm Hg) 2021-05-07 15:00:00 Cesar rial [place] Diastolic (mm Hg) 2021-05-07 15:00:00 Mem orial [place] Heart Rate 2021-05-07 14:16:00 Memorial [place] Heart Rate 2021-05-07 12:49:00 Memorial [place] Height 2021-05-04 17:17:00 167.64 cm Memorial [place] Weight 2021-05-04 17:17:00 [facility] [place] BMI Calculated 2021-05-04 17:17:00 Memori al [place] Height 2021-04-29 21:49:00 172.72 cm Memorial [place] Weight 2021-04-29 21:49:00 [facility] [place] BMI Calculated 2021-04-29 21:49:00 Memori al Kiel Systolic (mm Hg) 2021-04-16 16:06:00 Cesar rial Kiel Diastolic (mm Hg) 2021-04-16 16:06:00 Mem orial [place]iel Heart Rate 2021-04-16 16:06:00 Memorial [place] Respitory Rate 2021-04-16 16:06:00 Memori al [place] Height 2021-04-16 16:06:00 167.64 [facility] [place] Weight 2021-04-16 16:06:00 [facility] BMI Calculated 2021-04-16 16:06:00 [facility] [place] Heart Rate 2021-04-05 15:28:00 [facility] [place] Systolic (mm Hg) 2021-04-05 15:28:00 [facility] [place] Diastolic (mm Hg) 2021-04-05 15:28:00 [facility] Height 2021-04-05 15:28:00 167.64 cm [facility] Weight 2021-04-05 15:28:00 [facility] BMI Calculated 2021-04-05 15:28:00 [facility] [place] Systolic (mm Hg) 2020-10-14 14:14:00 [facility] [place] Diastolic (mm Hg) 2020-10-14 14:14:00 [facility] [place] Heart Rate 2020-10-14 14:14:00 [facility] [place] Respitory Rate 2020-10-14 14:14:00 [facility] [place] Height 2020-10-14 14:14:00 165.1 cm [facility] Weight 2020-10-14 14:14:00 [facility] [place] BMI Calculated 2020-10-14 14:14:00 [facility] Systolic (mm Hg) 2020-04-07 15:47:00 [facility] [place] Diastolic (mm Hg) 2020-04-07 15:47:00 [facility] [place] Heart Rate 2020-04-07 15:47:00 [facility] [place] Respitory Rate 2020-04-07 15:47:00 [facility] Height 2020-04-07 15:47:00 172.72 cm [facility] Weight 2020-04-07 15:47:00 [facility] [place] BMI Calculated 2020-04-07 15:47:00 [facility] [place] Systolic (mm Hg) 2020-03-10 15:47:00 [facility] [place] Diastolic (mm Hg) 2020-03-10 15:47:00 [facility] Heart Rate 2020-03-10 15:47:00 [facility] [place] Height 2020-03-10 15:47:00 170.18 cm [facility] [place] Weight 2020-03-10 15:47:00 [facility] [place] BMI Calculated 2020-03-10 15:47:00 [facility] [place] Systolic (mm Hg) 2018-10-01 16:12:00 [facility] [place] Diastolic (mm Hg) 2018-10-01 16:12:00 [facility] [place] Respitory Rate 2018-10-01 16:12:00 [facility] [place] Systolic (mm Hg) 2018-10-01 15:50:00 [facility] [place] Diastolic (mm Hg) 2018-10-01 15:50:00 [facility] Heart Rate 2018-10-01 15:50:00 [facility] Respitory Rate 2018-10-01 15:50:00 [facility] Heart Rate 2018-10-01 15:40:00 [facility] [place] Respitory Rate 2018-10-01 15:40:00 [facility] [place] Systolic (mm Hg) 2018-10-01 15:40:00 [facility] [place] Diastolic (mm Hg) 2018-10-01 15:40:00 [facility] Heart Rate 2018-10-01 15:30:00 [facility] [place] Temperature Oral (F) 2018-10-01 15:20:00 36.5 Mere [facility] [place] Height 2018-10-01 12:10:00 172.72 cm [facility] Temperature Oral (F) 2018-10-01 12:10:00 36.6 Mere [facility] Height 2018-09-26 12:43:00 172.72 cm [facility] [place] Procedures Procedure Date / Time Performing Clinician Source Performed COLONOSCOPY FLEXIBLE; 2018-10-01 14:54:00 Tona Wagnerann DIAGNOSTIC; INCL. COLLECTION OF SPECIMENS 83314 (N/A)<sup>1</sup> EXAM UNDER ANESTHESIA 2018-10-01 14:54:00 Tona al [place] ANORECTAL 69470 (N/A)<sup>2</sup> HEMORRHOIDECTOMY INTERNAL 2018-10-01 14:54:00 Pr morimigdalia Dyson BY LIGATION OTHER THAN RUBBER BAND SINGLE HEMORRHOID [facility] GROUP 32192 (N/A)<sup>3</sup> Repair of fifth digit 2018-07-04 00:00:00 Tona Funk hammertoe with plastic skin closure Tubal ligation 1991-03-06 00:00:00 [facility] Her kunz Cholecystectomy 1972-03-06 00:00:00 [facility] Breast surgery<sup>4</sup> Laor ial [place] Appendectomy [facility] K[facility] Breast reduction [facility] n Gallbladder operation [facility] H ermann [facility] rmann Cystoscopy [facility] Plan of Care Planned Activity Planned Date Details Comments Source Future Scheduled 2022-02-17 BREAST CANCER [facility] Test 12:44:48 SCREENING [code = BREAST CANCER SCREENING] Future Scheduled 2022-02-17 COLONOSCOPY SCREENING [facility] Test 12:44:48 [code = COLONOSCOPY SCREENING] Future Scheduled 2022-02-17 SHINGLES VACCINES (1 [facility] Test 12:44:48 of 2) [code = SHINGLES VACCINES (1 of 2)] Future Scheduled 2022-02-17 65[facility] [facility] Test 12:44:48 VACCINE (2 - PCV) [code = 65+ PNEUMOCOCCAL VACCINE (2 - PCV)] Future Scheduled 2022-02-17 [facility]ACCINE [facility] Test 12:44:48 [code = INFLUENZA VACCINE] Future Scheduled 2022-02-17 COVID-19 VACCINE (#1) [facility] Test 12:44:48 [code = COVID-19 VACCINE (#1)] Future Scheduled 2022-02-17 Hepatitis C screening [facility] Test 12:44:48 (procedure) [code = 629380041] Encounters Start End Encounter Admission Attending Care Care Encounter Source Date/Time Date/Time Type Type Clinicians Facility Department ID 2022-10-18 2022-10-18 Outpatient [facility] [id number] [facility] 10:30:00 10:30:00 10 luis Dyson 2022-04-18 2022-04-18 [id number] [facility] 11:45:00 11:45:00 06 [facility] 2021-10-07 2021-10-08 Outpatient nullFlavo [facility] [id number] Mem[facility] 13:20:19 04:59:59 bony Dyson [facility] 2021-10-07 2021-10-07 Outpatient Cardoza, [id number] 08:20:19 23:59:59 Jay Berg 2021-10-07 2021-10-07 Outpatient nullFlavo [facility] [id number] Memoria 08:20:19 08:20:19 r luis Dyson 2021-06-14 2021-06-15 Outpatient nullFlavo [facility] [id number] Memoria 19:30:00 04:59:59 r Specialty 09 [facility] 2021-06-14 2021-06-14 Outpatient Ryan [facility] [id number] 14:30:00 23:59:59 Zacarias Negrete 2021-06-14 2021-06-14 Outpatient ROSA ROSA [id number] Mem[facility] 14:30:00 14:30:00 luis Dyson 2021-05-07 2021-05-07 Day nullFlavo [facility] [id number] [facility] 11:20:00 15:30:00 Surgery r [place] 00 l [facility] 2021-05-07 2021-05-07 Outpatient Staller, MHPL MHPL [id number] 05:20:00 09:30:00 Zacarias L 00 2021-05-07 2021-05-07 Outpatient Staller, MHPL MHPL [id number] 05:20:00 09:30:00 Zacarias L 00 2021-05-07 2021-05-07 Outpatient STALLER, MHBL JAVAD [id number] MHBL 05:20:00 09:30:00 ZACARIAS 2021-04-30 2021-05-01 [place] [id number] Mem[facility] 14:45:00 05:59:59 r Urology 08 l Bobby Lovetta nn Time Share 2021-04-30 2021-04-30 Outpatient Staller, MG MG [id number] 08:45:00 23:59:59 Zacarias L 08 2021-04-30 2021-04-30 Outpatient MHIE MHIE [id number] Memoria 08:45:00 08:45:00 08 luis LovettKiel 2021-04-20 2021-04-21 [place] [id number] Memoria 21:00:00 05:59:59 r Urology 05 l [facility] 2021-04-20 2021-04-21 [place] [id number] Mem[place] 21:00:00 05:59:59 r Urology 07 l [facility] 2021-04-20 2021-04-20 Outpatient Staller, MG MG [id number] 15:00:00 23:59:59 Zacarias L 05 2021-04-20 2021-04-20 Outpatient Staller, MG MG [id number] 15:00:00 23:59:59 Zacarias L 07 2021-04-20 2021-04-20 Outpatient MHIE MHIE [id number] [place] 15:00:00 15:00:00 07 [place] 2021-04-20 2021-04-20 Outpatient MHIE MHIE [id number] [facility] 15:00:00 15:00:00 05 l Kiel 2021-04-16 2021-04-17 Outpatient nullFlavo MNA [id number] Mem[facility] 16:00:00 05:59:59 r Neurology 03 l Griselda Lovettann 2021-04-16 2021-04-16 [facility] [id number] 10:00:00 23:59:59 Ranjit 03 Rohit 2021-04-16 2021-04-16 Outpatient MHIE MHIE [id number] [place] 10:00:00 10:00:00 03 l Kiel 2021-04-05 2021-04-06 Outpatient nullFlavo [facility] [id number] Memoria 15:20:00 05:59:59 r Specialty 04 l [facility] 2021-04-05 2021-04-05 [id number] 09:20:00 23:59:59 Zacarias L 2021-04-05 2021-04-05 Outpatient MHIE MHIE [id number] [place] 09:20:00 09:20:00 04 luis Kiel 2020-10-14 2020-10-15 Outpatient nullFlavo MNA [id number] Memoria 14:00:00 04:59:59 r Neurology 02 l Griselda Lovettann 2020-10-14 2020-10-14 [facility] [id number] 09:00:00 23:59:59 Ranjit Caroline Rohit 2020-10-14 2020-10-14 Outpatient MHIE MHIE [id number] [place] 09:00:00 09:00:00 02 luis Kiel 2020-07-03 2020-07-03 Outpatient JON [facility] [id number] [place] 00:00:00 00:00:00 TAYLOR [address] 2020-06-19 2020-06-19 Outpatient JON [facility] [id number] [place] 00:00:00 00:00:00 TAYLOR [address] 2020-06-03 2020-06-05 Outside nullFlavo MNA [id number] Memoria 13:24:07 04:59:59 Medical r Neurology 01 l Records Griselda Dyson 2020-06-03 2020 Outpatient MHMISCHER MHMISCHER [id number] 08:24:07 23:59:59 2020-05-12 2020-05-12 Outpatient JON [facility] [id number] [place] 00:00:00 00:00:00 TAYLOR 046 [facility] 2020-04-07 2020-04-08 Outpatient nullFlavo MNA [id number] Memoria 15:15:00 05:59:59 r Neurology 01 l [place] Lovett[place] 2020-04-07 2020-04-07 Outpatient Julio, MHMISCHER MHMISCHER [id number] 09:15:00 23:59:59 Ranjit Rohit 2020-04-07 2020-04-07 Outpatient MHIE MHIE [id number] [place] 09:15:00 09:15:00 01 l Kiel 2020-03-30 2020-04-01 Outside nullFlavo MNA [id number] [facility] 14:32:50 05:59:59 Medical r Neurology 00 l Records Griselda Lovettann 2020-03-30 2020-03-31 Outpatient MHMISCHER MHMISCHER [id number] 08:32:50 23:59:59 2020-03-17 2020-03-17 Outpatient JON [facility] [id number] [place] 00:00:00 00:00:00 TAYLOR 298 [facility] 2020-03-17 2020-03-17 Outpatient JON [facility] [id number] [place] 00:00:00 00:00:00 TAYLOR 426 [facility] 2020-03-10 2020-03-11 Outpatient nullFlavo MNA [id number] Mem[facility] 16:30:00 05:59:59 r Neurology 00 l Griselda Lovettann 2020-03-10 2020-03-10 Outpatient Julio, MHMISCHER MHMISCHER [id number] 10:30:00 23:59:59 Ranjit Rohit 2020-03-10 2020-03-10 Outpatient MHIE MHIE [id number] [place] 10:30:00 10:30:00 00 l Kiel 2019-12-31 2019-12-31 Outpatient DOMINY, [facility] [id number] [place] 00:00:00 00:00:00 TAYLOR [address] 2019-12-25 2019-12-25 Outpatient DOMINY, [facility] [id number] [place] 00:00:00 00:00:00 TAYLOR [address] 2019-12-23 2019-12-23 Outpatient DOMINY, [facility] [id number] [place] 00:00:00 00:00:00 TAYLOR [address] 2019-12-18 2019-12-18 Outpatient DOMINY, [facility] [id number] [place] 00:00:00 00:00:00 TAYLOR [address] 2019-12-16 2019-12-16 Outpatient DOMINY, [facility] [id number] [place] 00:00:00 00:00:00 TAYLOR [address] 2019-12-06 2019-12-06 Outpatient DOMINY, [facility] [id number] [place] 00:00:00 00:00:00 TAYLOR [address] 2019-12-06 2019-12-06 Outpatient DOMINY, [facility] [id number] [place] 00:00:00 00:00:00 TAYLOR [address] 2019-12-03 2019-12-03 Outpatient DOMINY, [facility] [id number] [place] 00:00:00 00:00:00 TAYLOR [address] 2019-11-29 2019-11-29 Outpatient DOMINY, [facility] [id number] [place] 00:00:00 00:00:00 TAYLOR [address] 2019-11-22 2019-11-22 Outpatient DOMINY, [facility] [id number] [place] 00:00:00 00:00:00 TAYLOR [address] 2019-11-19 2019-11-19 Outpatient DOMINY, [facility] [id number] [place] 00:00:00 00:00:00 TAYLOR [address] 2019-11-15 2019-11-15 Outpatient DOMINY, [facility] [id number] [place] 00:00:00 00:00:00 TAYLOR [address] 2019-11-12 2019-11-12 Outpatient DOMINY, [facility] [id number] [place] 00:00:00 00:00:00 TAYLOR [address] 2019-11-12 2019-11-12 Outpatient DOMINY, [facility] [id number] [place] 00:00:00 00:00:00 TAYLOR [address] 2019-11-08 2019-11-08 Outpatient DOMINY, [facility] [id number] [place] 00:00:00 00:00:00 TAYLOR [address] 2019-11-01 2019-11-01 Outpatient DOMINY, [facility] [id number] [place] 00:00:00 00:00:00 TAYLOR [address] 2019-10-29 2019-10-29 Outpatient DOMINY, [facility] [id number] [place] 00:00:00 00:00:00 TAYLOR [address] 2019-10-15 2019-10-15 Outpatient DOMINY, [facility] [id number] [place] 00:00:00 00:00:00 TAYLOR [address] 2019-09-17 2019-09-17 Outpatient BROWN, [facility] [id number] [place] 00:00:00 00:00:00 JACOBO [address] 2019-09-05 2019-09-05 Outpatient DOMINY, [facility] [id number] [place] 00:00:00 00:00:00 TAYLOR [address] 2019-09-03 2019-09-03 Outpatient DOMINY, [facility] [id number] [place] 00:00:00 00:00:00 TAYLOR [address] 2019-08-02 2019-08-02 Outpatient DOMINY, [facility] [id number] [place] 00:00:00 00:00:00 TAYLOR [address] 2019-07-23 2019-07-23 Outpatient DOMINY, [facility] [id number] [place] 00:00:00 00:00:00 TAYLOR [address] 2019-07-16 2019-07-16 Outpatient DOMINY, [facility] [id number] [place] 00:00:00 00:00:00 TAYLOR 808 [facility] 2019-05-28 2019-05-28 Outpatient JON [facility] [id number] [place] 00:00:00 00:00:00 TAYLOR 152 [facility] 2019-05-28 2019-05-28 Outpatient JON [facility] [id number] [place] 00:00:00 00:00:00 TAYLOR 178 [facility] 2019-02-05 2019-02-06 Outpatient nullFlavo [facility] [id number] Memoria 20:30:54 05:59:59 r [facility] 2019-02-05 2019-02-05 Outpatient Sony, [id number] 14:30:54 23:59:59 Jay 2019-02-05 2019-02-05 Outpatient nullFlavo [facility] [id number] Memoria 14:30:54 23:59:59 bony luis [place] 2018-12-05 2018-12-06 Outpatient nullFlavo [facility] [id number] Memoria 20:41:51 04:59:59 r [facility] 2018-12-05 2018-12-05 Outpatient Sony, [id number] 15:41:51 23:59:59 Jya 2018-12-05 2018-12-05 Outpatient nullFlavo [facility] [id number] Memoria 15:41:51 23:59:59 bony smith [place] 2018-10-01 2018-10-01 Outpatient nullFlavo [facility] [id number] Memoria 11:02:03 16:55:00 [facility] 2018-10-01 2018-10-01 Outpatient nullFlavo [facility] [id number] Memoria 06:02:03 11:55:00 bony luis [place] 2018-10-01 2018-10-01 Outpatient Maik Kwan [id number] 06:02:03 11:55:00 8 Results Test Description Test Time Test Comments Results Result Comments Source LABORATORY 2021-10-07 14:57:00 Test Item Value Reference Range Interpretation Comme nts Creatinine (test code = Creatinine) 1.1 0.6-1.3 [facility]4900[facility] 14:57:00 Test Item Value Reference Range Interpretation Comments Results (test code = Reported (10/07/21 9:57 Results) AM) [facility]oz[facility]miAUJLTAJSGO5975-43-85 14:57:00 Test Item Value Reference Range Interpretation Comments Calculate GFR (test code = Calculate 51 59-120 GFR) [place] 119242-03-01 17:02:00 Test Item Value Reference Range Interpretation Comments Glucose Lvl (test code = Glucose Lvl) 169 70-99 [place] 119242-03-01 17:02:00 Test Item Value Reference Range Interpretation Comments BUN (test code = BUN) 15 7-22 [place] 119242-03-01 17:02:00 Test Item Value Reference Range Interpretation Comments Creatinine Lvl (test code = Creatinine 0.89 0.50-1.40 Lvl) [place] 119242-03-01 17:02:00 Test Item Value Reference Range Interpretation Comments Sodium Lvl (test code = Sodium Lvl) 138 135-145 [place] 119242-03-01 17:02:00 Test Item Value Reference Range Interpretation Comments Potassium Lvl (test code = Potassium 4.3 3.5-5.1 Lvl) [facility]2022-03-01 17:02:00 Test Item Value Reference Range Interpretation Comments Chloride Lvl (test code = Chloride Lvl) 108 95-109 [facility]2022-03-01 17:02:00 Test Item Value Reference Range Interpretation Comments CO2 (test code = CO2) 20 24-32 [place] 119242-03-01 17:02:00 Test Item Value Reference Range Interpretation Comments Calcium Lvl (test code = Calcium Lvl) 9.5 8.5-10.5 [place] 119242-03-01 17:02:00 Test Item Value Reference Range Interpretation Comments AGAP (test code = AGAP) 14.3 10.0-20.0 [place] 119242-03-01 17:02:00 Test Item Value Reference Range Interpretation Comments eGFR (test code = eGFR) 66 [facility]xmySEIPCRHDZP2177-15-11 17:02:00 Test Item Value Reference Range Interpretation Comments WBC (test code = WBC) 7.0 3.7-10.4 [place] 644822-03-01 17:02:00 Test Item Value Reference Range Interpretation Comments RBC (test code = RBC) 4.63 4.20-5.40 [facility] CenterMqqdnpjSCGEQFTYCH1618-52-91 17:02:00 Test Item Value Reference Range Interpretation Comments Hgb (test code = Hgb) 12.7 12.0-16.0 [facility] CenterEjypbfpJBNGNWKGZF1436-72-37 17:02:00 Test Item Value Reference Range Interpretation Comments Hct (test code = Hct) 38.9 36.0-48.0 [facility] CenterCsmjjodLXDZWTRJEP5818-74-39 17:02:00 Test Item Value Reference Range Interpretation Comments MCV (test code = MCV) 84.1 80.0-98.0 [facility] CenterPnjpwiiKEACXNOSWC8515-27-34 17:02:00 Test Item Value Reference Range Interpretation Comments MCH (test code = MCH) 27.4 pg 27.0-31.0 [facility] CenterHztgzoxLPHEBTDQCI1360-25-43 17:02:00 Test Item Value Reference Range Interpretation Comments MCHC (test code = MCHC) 32.5 32.0-36.0 [facility] CenterGxooxnkHCAQRYLAQD7322-27-30 17:02:00 Test Item Value Reference Range Interpretation Comments RDW (test code = RDW) 17.0 11.5-14.5 [facility] CenterHoyrdcvMAPGWEWVDN3182-27-74 17:02:00 Test Item Value Reference Range Interpretation Comments Platelet (test code = Platelet) 218 133-450 [facility] CenterCxsozchDFUXJXPYWR1777-76-69 17:02:00 Test Item Value Reference Range Interpretation Comments MPV (test code = MPV) 8.7 7.4-10.4 [facility] CenterKonpedmYKRTIJCSPF5930-55-59 17:02:00 Test Item Value Reference Range Interpretation Comments Segs (test code = Segs) 61.2 45.0-75.0 [facility] CenterLdehvrtUELTCIGLRK6958-91-16 17:02:00 Test Item Value Reference Range Interpretation Comments Lymphocytes (test code = Lymphocytes) 30.0 20.0-40.0 [facility] CenterPxkklvnIEZCXAMLIS4040-34-64 17:02:00 Test Item Value Reference Range Interpretation Comments Monocytes (test code = Monocytes) 6.1 2.0-12.0 [facility] CenterMqtkqrtFHDNQOFOPS6029-10-64 17:02:00 Test Item Value Reference Range Interpretation Comments Eosinophils (test code = 1.5 See_Comment [A utomated message] The Eosinophils) system which ge nerated this result tra nsmitted reference range : <=4.0. The reference r robin was not used to int erpret this result as normal/abnormal . [facility] CenterEgwxhwsGMDKYAKQKP6647-00-43 17:02:00 Test Item Value Reference Range Interpretation Comments Basophils (test code = 1.2 See_Comment [Aut omated message] The Basophils) system which ge nerated this result tra nsmitted reference range : <=1.0. The reference r robin was not used to int erpret this result as normal/abnormal . [facility] CenterZmtbgdnYTWRPMOFDJ8060-36-80 17:02:00 Test Item Value Reference Range Interpretation Comments Neutrophils # (test code = Neutrophils 4.3 1.5-8.1 #) [facility] CenterZeqaperOHCEIRQIZR6413-28-27 17:02:00 Test Item Value Reference Range Interpretation Comments Lymphocytes # (test code = Lymphocytes 2.1 1.0-5.5 #) [facility] CenterOkrqlwlEWUSXAEARS8227-67-96 17:02:00 Test Item Value Reference Range Interpretation Comments Monocytes # (test code 0.4 See_Comment [Aut omated message] The = Monocytes #) system which generated this result tra nsmitted reference range : <=0.8. The reference r robin was not used to int erpret this result as normal/abnormal . [facility] CenterKyvjctgDPDUELTRNI7677-24-55 17:02:00 Test Item Value Reference Range Interpretation Comments Eosinophils # (test code 0.1 See_Comment [A utomated message] The = Eosinophils #) system [facility] generated this result tra nsmitted reference range : <=0.5. The reference r robin was not used to int erpret this result as normal/abnormal . [facility] CenterHyzuaxmNMRLLGPZTU8407-72-07 17:02:00 Test Item Value Reference Range Interpretation Comments Basophils # (test code 0.1 See_Comment [Aut omated message] The = Basophils #) system which generated this result tra nsmitted reference range : <=0.2. The reference r robin was not used to int erpret this result as normal/abnormal . [facility]RzreuxdMHJIWYFOKJ6589-67-70 17:02:00 Test Item Value Reference Range Interpretation Comments Coronavirus (COVID-19) Not Detected DOTTY (test code = *NA*(05/04/21 11:02 AM) Coronavirus (COVID-19) DOTTY) [facility] [id number] 17:02:00 Test Item Value Reference Range Interpretation Comments Hgb A1C (test code = Hgb A1C) 7.4 [facility]2022-02-25 15:45:00 Test Item Value Reference Range Interpretation Comments Glucose Lvl (test code = Glucose Lvl) 183 65-139 [place] 119242-02-25 15:45:00 Test Item Value Reference Range Interpretation Comments BUN (test code = BUN) 18 7-25 [facility]2022-02-25 15:45:00 Test Item Value Reference Range Interpretation Comments Creatinine Lvl (test code = Creatinine 0.86 0.50-0.99 Lvl) [place] 119242-02-25 15:45:00 Test Item Value Reference Range Interpretation Comments eGFR NON-AFR. ESTONIAN (test code = 69 eGFR NON-AFR. ESTONIAN) [place] 119242-02-25 15:45:00 Test Item Value Reference Range Interpretation Comments eGFR (test code = eGFR 80 ) [facility]2022-02-25 15:45:00 Test Item Value Reference Range Interpretation Comments B/C Ratio (test code = B/C NOT APPLICABLE 6-22 Ratio) [facility]2022-02-25 15:45:00 Test Item Value Reference Range Interpretation Comments Sodium Lvl (test code = Sodium Lvl) 138 135-146 [place] 119242-02-25 15:45:00 Test Item Value Reference Range Interpretation Comments Potassium Lvl (test code = Potassium 4.4 3.5-5.3 Lvl) [facility]2022-02-25 15:45:00 Test Item Value Reference Range Interpretation Comments Chloride Lvl (test code = Chloride Lvl) 100 98-110 [place] 119242-02-25 15:45:00 Test Item Value Reference Range Interpretation Comments CO2 (test code = CO2) 27 20-32 [place] 119242-02-25 15:45:00 Test Item Value Reference Range Interpretation Comments Calcium Lvl (test code = Calcium Lvl) 10.1 8.6-10.4 [facility]MKFH6624-68-46 15:45:00 Test Item Value Reference Range Interpretation Comments WBC X 10x3 (test code = WBC X 10x3) 7.6 3.8-10.8 [place] 644822-02-25 15:45:00 Test Item Value Reference Range Interpretation Comments RBC X 10x6 (test code = RBC X 10x6) 4.64 3.80-5.10 [place] 644822-02-25 15:45:00 Test Item Value Reference Range Interpretation Comments Hgb (test code = Hgb) 12.8 11.7-15.5 [place] 644822-02-25 15:45:00 Test Item Value Reference Range Interpretation Comments Hct (test code = Hct) 40.1 35.0-45.0 [place] 644822-02-25 15:45:00 Test Item Value Reference Range Interpretation Comments MCV (test code = MCV) 86.4 80.0-100.0 [place] 19810-02-25 15:45:00 Test Item Value Reference Range Interpretation Comments MCH (test code = MCH) 27.6 pg 27.0-33.0 [facility] CenterQsjqmnxIVWKHEHMXE3164-92-95 15:45:00 Test Item Value Reference Range Interpretation Comments MCHC (test code = MCHC) 31.9 32.0-36.0 [facility] CenterJrutawfBCDQRZZPGJ2620-22-61 15:45:00 Test Item Value Reference Range Interpretation Comments RDW (test code = RDW) 15.7 11.0-15.0 [place] 644822-02-25 15:45:00 Test Item Value Reference Range Interpretation Comments Platelet (test code = Platelet) 200 140-400 [facility] CenterLdteaitUISFCSBZRF7881-64-75 15:45:00 Test Item Value Reference Range Interpretation Comments MPV (test code = MPV) 12.5 7.5-12.5 [place] [id number] 15:45:00 Test Item Value Reference Range Interpretation Comments Neutrophils # (test code = Neutrophils 4902 6355-1685 #) [facility]kvomvnZGMXJOCHDW4824-92-66 15:45:00 Test Item Value Reference Range Interpretation Comments Lymphocytes # (test code = Lymphocytes 2090 850-3900 #) [facility] CenterLjndyddPDQXJPVCDN9208-52-79 15:45:00 Test Item Value Reference Range Interpretation Comments Monocytes # (test code = Monocytes #) 426 200-950 [facility]HgixdmdAZBZHRQWIN6267-90-92 15:45:00 Test Item Value Reference Range Interpretation Comments Eosinophils # (test code = Eosinophils 144 15-500 #) [facility] Hospit[id number] 15:45:00 Test Item Value Reference Range Interpretation Comments Basophils # (test code 38 See_Comment [Aut omated message] The = Basophils #) system which generated this result tra nsmitted reference range : <=200. The reference r robin was not used to int erpret this result as normal/abnormal . [facility] HospitalMdepgtdYPRWKWPOYM4809-02-68 15:45:00 Test Item Value Reference Range Interpretation Comments Segs (test code = Segs) 64.5 [facility] HospitalFdcqmwpJACOWYHLGC9026-59-34 15:45:00 Test Item Value Reference Range Interpretation Comments Lymphocytes (test code = Lymphocytes) 27.5 [facility] HospitalCfpyhuuJQYIVRFMOA0533-01-58 15:45:00 Test Item Value Reference Range Interpretation Comments Monocytes (test code = Monocytes) 5.6 [facility] HospitalDlhgbqmOBPUNDQCZK2327-33-38 15:45:00 Test Item Value Reference Range Interpretation Comments Eosinophils (test code = Eosinophils) 1.9 [facility] HospitalPaawyarPXWZZXKHJS0141-76-08 15:45:00 Test Item Value Reference Range Interpretation Comments Basophils (test code = Basophils) 0.5 [facility] [id number] 15:45:00 Test Item Value Reference Range Interpretation Comments Result 2 (Urine Culture) See Result Comment (test code = Result 2 (Urine Culture)) [facility] [id number] 15:45:00 Test Item Value Reference Range Interpretation Comments Hgb A1C (test code = Hgb A1C) 7.5 [facility] [id number] 20:21:00 Test Item Value Reference Range Interpretation Comments POC UA Color (test Yellow *NA*(04/20/21 code = POC UA Color) 2:21 PM) [facility] [id number] 20:21:00 Test Item Value Reference Range Interpretation Comments POC UA Turbidity (test Clear *NA*(04/20/21 code = POC UA Turbidity) 2:21 PM) [facility] [id number] 20:21:00 Test Item Value Reference Range Interpretation Comments POC UA SG (test code = POC UA SG) 1.025 1 [facility] [id number] 20:21:00 Test Item Value Reference Range Interpretation Comments POC UA pH (test code = POC UA pH) 6.0 1 5.0-8.0 [facility] [id number] 20:21:00 Test Item Value Reference Range Interpretation Comments POC UA Prot (test code = POC UA 100 mg/dL Prot) [facility] [id number] 20:21:00 Test Item Value Reference Range Interpretation Comments POC UA Glu (test code = POC UA Negative mg/dL Glu) [facility] [id number] 20:21:00 Test Item Value Reference Range Interpretation Comments POC UA Ket (test code = POC UA Negative mg/dL Ket) [facility] [id number] 20:21:00 Test Item Value Reference Range Interpretation Comments POC UA Bili (test Negative *NA*(04/20/21 code = POC UA Bili) 2:21 PM) [facility] [id number] 20:21:00 Test Item Value Reference Range Interpretation Comments POC UA Bld (test code Moderate *ABN*(04/20/21 = POC UA Bld) 2:21 PM) [facility] [id number] 20:21:00 Test Item Value Reference Range Interpretation Comments POC UA Uro (test code = POC UA Uro) 0.2 0.1-1.0 [facility] [id number] 20:21:00 Test Item Value Reference Range Interpretation Comments POC UA Nit (test code Negative *NA*(04/20/21 = POC UA Nit) 2:21 PM) [facility] [id number] 20:21:00 Test Item Value Reference Range Interpretation Comments POC UA LeukEst (test Negative *NA*(04/20/21 code = POC UA LeukEst) 2:21 PM) [facility] [id number] 17:00:00 Test Item Value Reference Range Interpretation Comments UA Color (test code = UA Color) YELLOW [facility] [id number] 17:00:00 Test Item Value Reference Range Interpretation Comments UA Turbidity (test code = UA Turbidity) CLEAR [facility] [id number] 17:00:00 Test Item Value Reference Range Interpretation Comments UA Spec Grav (test code = UA Spec 1.009 1 1.001-1.035 Grav) [facility] AND [id number] 17:00:00 Test Item Value Reference Range Interpretation Comments UA pH (test code = UA pH) 8.0 1 5.0-8.0 [facility] AND [id number] 17:00:00 Test Item Value Reference Range Interpretation Comments UA Glucose (test code = UA Glucose) NEGATIVE [facility] AND [id number] 17:00:00 Test Item Value Reference Range Interpretation Comments UA Bili (test code = UA Bili) NEGATIVE [facility] AND [id number] 17:00:00 Test Item Value Reference Range Interpretation Comments UA Ketones (test code = UA Ketones) NEGATIVE [facility] AND [id number] 17:00:00 Test Item Value Reference Range Interpretation Comments UA Blood (test code = UA Blood) TRACE [facility] AND [id number] 17:00:00 Test Item Value Reference Range Interpretation Comments UA Protein (test code = UA Protein) 2+ [facility] AND [id number] 17:00:00 Test Item Value Reference Range Interpretation Comments UA Nitrite (test code = UA Nitrite) NEGATIVE [facility] AND [id number] 17:00:00 Test Item Value Reference Range Interpretation Comments UA Leuk Est (test code = UA Leuk NEGATIVE Est) [facility] AND [id number] 17:00:00 Test Item Value Reference Range Interpretation Comments UA WBC (test code = UA WBC) NONE SEEN [facility] AND [id number] 17:00:00 Test Item Value Reference Range Interpretation Comments UA RBC (test code = UA RBC) 0-2 [facility] AND [id number] 17:00:00 Test Item Value Reference Range Interpretation Comments UA Sq Epi (test code = UA Sq Epi) 6-10 [facility] AND [id number] 17:00:00 Test Item Value Reference Range Interpretation Comments UA Bacteria (test code = UA NONE SEEN Bacteria) [facility] AND [id number] 17:00:00 Test Item Value Reference Range Interpretation Comments UA Hyal Cast (test code = UA Hyal NONE SEEN Cast) [facility]carol[facility] AND [id number] 17:00:00 Test Item Value Reference Range Interpretation Comments Result 3 (Urine Culture) (test SEE COMMENT code = Result 3 (Urine Culture)) [facility] 2 RNA [Presence] in Respiratory specimen by DOTTY with probe [id number] 16:07:08 Test Item Value Reference Range Interpretation Comments SARS coronavirus 2 RNA Not detected Not-Detected [Presence] in Respiratory specimen by DOTTY with probe detection (test code = 66891-0) [facility] 12:23:00 Test Item Value Reference Range Interpretation Comments Blood Glucose, Capillary (test code = 136 74-106 Blood Glucose, Capillary) [facility]IlzboigRHLUBEZMFC5050-66-69 13:35:00 Test Item Value Reference Range Interpretation Comments Hgb A1c (test code = Hgb A1c) 6.5 [facility] CenterPoazudnKTQWWZTHPS2031-45-39 13:35:00 Test Item Value Reference Range Interpretation Comments Calcium Level (test code = Calcium 7.8 8.5-10.5 Level) [facility] CenterCyusyfqUZMXQUOLXY1076-11-15 13:35:00 Test Item Value Reference Range Interpretation Comments Chloride Level (test code = Chloride 98 95-109 Level) [facility] CenterQxuhhndUWIXUCXIKC8225-72-43 13:35:00 Test Item Value Reference Range Interpretation Comments AGAP (test code = AGAP) 15.7 10.0-20.0 [facility] CenterDacqevpOZPUNBWOWJ8711-74-10 13:35:00 Test Item Value Reference Range Interpretation Comments Carbon Dioxide Level (test code = 26 24-32 Carbon Dioxide Level) [facility] CenterWzxenguGHMBLPJXHD9688-64-41 13:35:00 Test Item Value Reference Range Interpretation Comments eGFR (test code = eGFR) 88 [facility] CenterKndkfwgEECGYYORPQ6383-23-68 13:35:00 Test Item Value Reference Range Interpretation Comments Potassium Level (test code = Potassium 3.7 3.5-5.1 Level) [facility] CenterZundwsyCYQULGUAYN6138-53-15 13:35:00 Test Item Value Reference Range Interpretation Comments Sodium Level (test code = Sodium Level) 136 135-145 [facility] CenterQtxgcrcPSZENPAJOY5494-22-11 13:35:00 Test Item Value Reference Range Interpretation Comments Creatinine (test code = Creatinine) 0.71 0.50-1.40 [facility] CenterPvfnqowITMWWSWKPI0843-76-31 13:35:00 Test Item Value Reference Range Interpretation Comments BUN (test code = BUN) 13 7-22 [facility] CenterCumaknlIWKJHNGLCS6536-71-78 13:35:00 Test Item Value Reference Range Interpretation Comments Glucose Lvl (test code = Glucose Lvl) 170 70-99 [facility] CenterIzyumtoFHORHZWCBI0718-30-27 13:35:00 Test Item Value Reference Range Interpretation Comments White Blood Count (test code = White 7.0 3.7-10.4 Blood Count) [facility] CenterOqdqfjbFXLGSTMUIF2581-45-42 13:35:00 Test Item Value Reference Range Interpretation Comments Red Blood Cell Count (test code = Red 4.49 4.20-5.40 Blood Cell Count) [facility] CenterIsvphiqHLFTWAUIWT5072-76-86 13:35:00 Test Item Value Reference Range Interpretation Comments Hemoglobin (test code = Hemoglobin) 13.9 12.0-16.0 [facility] CenterJwqqjwfDCMEKTOSRE9247-26-04 13:35:00 Test Item Value Reference Range Interpretation Comments MCV (test code = MCV) 85.3 80.0-98.0 [facility] CenterXumhjnuSFYAVNSKFY7810-69-88 13:35:00 Test Item Value Reference Range Interpretation Comments MPV (test code = MPV) 10.8 7.4-10.4 [facility] CenterIprtqujVQTGNIBSVN2153-86-13 13:35:00 Test Item Value Reference Range Interpretation Comments Platelet (test code = Platelet) 233 133-450 [facility] CenterAdpaxicAUNVZFYAFH7047-30-16 13:35:00 Test Item Value Reference Range Interpretation Comments RDW (test code = RDW) 15.5 11.5-14.5 [facility] CenterWmsaiyxOKRBAXKDXA1584-73-79 13:35:00 Test Item Value Reference Range Interpretation Comments Hematocrit (test code = Hematocrit) 38.3 36.0-48.0 [facility] CenterCcmfxktUJXQKREDKG1069-63-54 13:35:00 Test Item Value Reference Range Interpretation Comments MCHC (test code = MCHC) 36.2 32.0-36.0 [facility] CenterMqttvbhLKEIGMWHZE4507-34-09 13:35:00 Test Item Value Reference Range Interpretation Comments MCH (test code = MCH) 30.9 pg 27.0-31.0 [facility] CenterUtofjlxZUPJTXDKRW7215-88-30 13:35:00 Test Item Value Reference Range Interpretation Comments PLT Morph (test code = PLT Morph) Normal [facility] CenterTfhnozhZYOLBRHUCA8289-98-09 13:35:00 Test Item Value Reference Range Interpretation Comments RBC Morph (test code = RBC Morph) Normal [facility] CenterFtspgqtTEAXBMQABS7914-43-19 13:35:00 Test Item Value Reference Range Interpretation Comments Basophil # (test code = 0.1 See_Comment [Au tomated message] The Basophil #) system which ge nerated this result tra nsmitted reference range : <=0.2. The reference r robin was not used to int erpret this result as normal/abnormal . [facility] CenterMmrbdykSEPWGZYPMA9167-49-29 13:35:00 Test Item Value Reference Range Interpretation Comments Neutrophil % (test code = Neutrophil %) 56.6 45.0-75.0 [facility] CenterIqznpayUZZWXSVXVJ5421-55-33 13:35:00 Test Item Value Reference Range Interpretation Comments Eosinophil # (test code 2.8 See_Comment [Au tomated message] The = Eosinophil #) system which generated this result tra nsmitted reference range : <=4.0. The reference r robin was not used to int erpret this result as normal/abnormal . [facility] CenterXcmmmncMJHLFRXEKD3573-36-41 13:35:00 Test Item Value Reference Range Interpretation Comments Lymphocyte % (test code = Lymphocyte %) 33.6 20.0-40.0 [facility] CenterQmgmfmdGVUQPNGMSK2625-35-84 13:35:00 Test Item Value Reference Range Interpretation Comments Neutrophil # (test code = Neutrophil #) 4.0 1.5-8.1 [facility] CenterPtqvknqWAXBLXNUFT1536-57-56 13:35:00 Test Item Value Reference Range Interpretation Comments Basophil % (test code = 1.3 See_Comment [Au tomated message] The Basophil %) system which ge nerated this result tra nsmitted reference range : <=1.0. The reference r robin was not used to int erpret this result as normal/abnormal . [facility] CenterSuiwqpsYGAJLTWXCL9282-44-82 13:35:00 Test Item Value Reference Range Interpretation Comments Monocyte % (test code = Monocyte %) 5.7 2.0-12.0 [facility] CenterQllbazbSMLYVCMITH5990-66-22 13:35:00 Test Item Value Reference Range Interpretation Comments Lymphocyte # (test code = Lymphocyte #) 2.4 1.0-5.5 [facility] CenterNtyodhgVRTTHVEOZP6875-16-84 13:35:00 Test Item Value Reference Range Interpretation Comments Eosinophil % (test code 0.2 See_Comment [Au tomated message] The = Eosinophil %) system which generated this result tra nsmitted reference range : <=0.5. The reference r robin was not used to int erpret this result as normal/abnormal . [facility] CenterQmlexjrLYCSECPUCX4164-11-39 13:35:00 Test Item Value Reference Range Interpretation Comments Monocyte # (test code = 0.4 See_Comment [Au tomated message] The Monocyte #) system which ge nerated this result tra nsmitted reference range : <=0.8. The reference r robin was not used to int erpret this result as normal/abnormal . [facility]
[2022-04-19] MEDS ORDERED: D10W 250 ML BAG IV PRN (17:07)
[2022-04-19] MEDS: Ringers Lactate 1,000 ML IV SCH (17:23)
--- NOTE | 2022-04-19 17:36 | OP ---
Date of Procedure: 04/19/2022 Surgeon: Estela Hughes MD Developmental Training Counselor: Coby Flood. Preoperative Diagnoses: Cystocele, rectocele, stress urinary incontinence. Postoperative Diagnoses: Stage III uterine prolapse, posterior wall defect, perineocele, posterior e nterocele, stress urinary incontinence. Procedures Performed: Bilateral sacrospinous ligament fixation, posterior approach cervical colpopex y, posterior wall and enterocele repairs, biologic graft augmented repair of the posterior wall and a pex, then transobturator mid urethral sling, perineocele repair, and cystoscopy. Estimated Blood Loss: 150. Urine Output: 200. Fluids: LR, 1000. Specimens: No specimens. Complications: No complications. Anesthesia: General. Condition: The patient's condition stable. Findings: POP-Q -2, -3, -6, 5; then 9, 0, +1, and -2. The Y-shaped Coloplast graft was sutured to t he cervix in the center with PDS 2-0 sutures and bilateral sacrospinous ligament fixation with the gr aft with Capio Prolene sutures. The distal part of the graft was attached to the rectovaginal septum , connective tissue with the help of 2-0 PDS in a continuous running fashion. The posterior defect w as repaired with a 2-0 Vicryl suture and reattached to the perineal body with the 2-0 Vicryl suture. Perineocele repair was performed with the help of 2-0 Vicryl sutures in a continuous running fashion in 2 layers and a 3-0 Vicryl closure. Enterocele was reduced with 3-0 Monocryl suture. On cystosco py, no mesh in the bladder. Both the ureters were patent. No evidence of any foreign body in the bl adder either. At the end of the repair, her POP-Q was -3, - 3, -8, 4, thick; 9, -2, -3 and -7. Implants: Coloplast biologic graft and TVT-O. Indications: The patient is a 71-year-old patient with symptomatic prolapse, mixed incontinence, sta tus post sacral neuromodulation with significant improvement in her overactive symptoms; however, quintanilla s have still urinary leakage likely secondary to uncorrected stress urinary incontinence, question of incomplete emptying due to her prolapse. So, we discussed due to her symptomatic prolapse that she would proceed with her prolapse repair and transobturator mid urethral sling, possible anterior repai r if the defect was noted. After she was consented, she was brought to the hospital. A biologic gra ft augmented repair was also reviewed with the patient. Procedure In Detail: She was taken back to OR. 2 g of Ancef were given. SCDs were placed. Time-ou t was done. After general anesthesia was given, she was placed in dorsal lithotomy position. Pelvic exam was performed. The POP-Q is as dictated above. Lower abdomen, vulva, vagina, and perineum were prepped and draped in a sterile fashion. Garcia was p laced to drain the bladder and clamped and retracted superiorly. As was observed, the anterior wall had no significant defect. So, posterior wall was the one to be r epaired. The remnants of the hymen were picked up with 2 Allis clamps. The self-retaining retractor was fixed in place. A triangular skin incision was made on the perineocele and this was a separate incision, which was re paired separately. The epithelium was taken down with the help of a 15 blade. The lateral margins o f the perineum were dissected with the help of scissors and a scalpel. Once the deep transverse jad dave were exposed, there was also scar as well as retraction of the structures leaving a fat replaced scar tissue in the center. The repair was performed later after the posterior compartment was opened, so the next incision was m liliana in a tavia-shaped fashion and the lower 1/3 of the vaginal wall epithelium way was incised with the scalpel, then was peeled off with the help of the scalpel and Kori, lateral dissection opening u p the rectovaginal fascia exposing the defect where the distal part of the rectovaginal septum was de tached from the perineal body as there was not an intact perineal body in this patient. Dissection was carried superiorly to separate the connective tissue from the vaginal epithelium going into the upper half of the posterior compartment. The posterior enterocele was dissected. All this dissection was carried out sharply with Kori and once the dissection was taken all the way to the ce rvix, the posterior lip of the cervix was held with an Allis and the posterior wall of the cervix was exposed by opening up the connective tissue here. After dissecting and the posterior ent erocele without entering the enterocele sac, this was reduced with the help of a continuous running p ursestring suture with 3-0 Monocryl. Once this was completed and reduced, the posterior proximal mar gin of the rectovaginal septum was dissected and clearly demarcated. Opened up the pararectal space on both sides, palpating the ischial spine and then sweeping medial an d posterior to the ischial spine, the sacrospinous ligament was cleared up and the rectum dissected m edially on both sides. Then, Capio was taken and Prolene sutures were placed in the mid ligament, on e suture on each side. These were held on clamps. Three 2-0 PDS sutures were placed on the cervix, 1 in the center through the tissue of the cervix, th en laterally at the distal attachment of the uterosacral ligaments to the cervix. These were held on clamps. The next repair was the perineocele repair. A 2-0 Vicryl was taken and interrupted sutures were placed in the lateral structures of the perineal body and they were brought together with 3 interrupted Vicryl sutures and then a continuous running 2 -0 Vicryl was used to bring another layer of the structures back together. External sphincter had to be repaired as well and this was done with a 2-0 Vicryl from [id number] and this closure was done with a 3-0 Vicryl at the end. Once the perineal body was reconstructed, the distal part of the rectovaginal septum was sutured to t he perineal body using 2-0 Vicryl sutures in a continuous running fashion. There was a small defect that was superficial on the right side, which was also repaired with a continuous 2-0 Vicryl. Once t hese were done and the entire rectovaginal septum was intact in the distal half and attached to the r eattached to the perineal body, then the proximal part was attached with 2-0 PDS once the graft was b rought. A Y-shaped graft was fashioned from 8 x 6 Coloplast graft. This was shaved into a Y with the top seg ment about 3 cm in width spanning from the sacrospinous to sacrospinous, 8 cm in the interspinous lyi ng distance. The 2-0 PDS sutures x3 in the center were attached to the center of the graft first, th en the Prolene sutures with half stitch were tied to the lateral aspects and these were tied down. O nce the entire graft in the proximal part was attached in all 5 points of fixation, then the stem of the Y was sutured with 2-0 PDS continuously to the proximal part of the rectovaginal septum. Once th is was done, there was an excellent repair and reduction in a continuous connective tissue support fr om the posterior pericervical ring all the way to the perineal body. Then, very small amount, maybe half a cm of vaginal epithelium was trimmed to have good approximation and was closed with the help o f a continuous running 2-0 Vicryl suture and the distal perineal part 3-0 Vicryl was used in a subcut aneous and subcuticular fashion for closure. Rectal exam revealed an excellent perineal body. No de fect in the posterior wall and no sutures in the rectum. After gloves were changed, sling was done. Mid urethral area was picked up with 2 Allis clamps. A 1 .5 cm midline incision was made with a scalpel after injecting with dilute vasopressin. Dissection w as carried to the ipsilateral side on the inferior pubic ramus opening the obturator fascia. Then, w ing guide was placed spike was passed at a 45-degree angle to the horizontal and vertical planes. Hu gging the inferior pubic ramus, it was exited at least 2 cm lateral to the groin fold slightly above the line higher than the external urethral meatus. The plastic dilator was pulled out the mesh and t he sheaths were held with a Gabrielle. Similar pass was taken on the opposite side as well. Then, the m esh was tensioned appropriately in the center making an adequate incision to lay it down flat without any folds. Then, the sheaths were pulled out after appropriately tensioning it with the help of Met z. Mesh got flushed with the skin laterally and the incisions closed with the help of Dermabond. Th e mesh incision was closed with the help of 3-0 Vicryl in a continuous running locked fashion. Aixa ter was removed, bladder was drained, and cystoscopy was performed a 17-[place] sheath, 30-degree lens and normal saline. Excellent jets of urine from both ureteric orifices and the entire bladder was u nremarkable. Then, no mesh in the bladder by paying attention to the lateral parts of the bladder im mediately lateral to the meatus. The bladder was then drained. Garcia was replaced. Vaginal packing was placed. The patient was amanda hafsa from anesthesia and taken to PACU in a stable condition. She will follow up with me in 1 week. She is admitted overnight and will have a voiding trial in the morning after the packing Garcia arou nd. ARIN/JESSICA Voice ID: [id number] Report ID: [id number]
[2022-04-19 17:37] VITALS: BMI 34.8
[2022-04-19] MEDS: ONDANSETRON 4 MG (ODT) TAB PO PRN ×2 (17:43→20:49)
[2022-04-19 18:01] VITALS: O2SAT 98
[2022-04-19] MEDS: INSULIN -REGULAR HUMAN 50 UNIT/0.5 ML ML SQ SCH ×2 (18:29→20:51)
[2022-04-19] MEDS ORDERED: INFLUENZA VACCINE (for 6+ mo) 0.5 ML DOSE IMVAC ONE (20:00)
[2022-04-19] MEDS: MORPHINE 2 MG/ML SYR IV PRN (20:49)
[2022-04-19] MEDS ORDERED: HOME MED 1 EA UNK (Metformin Hcl [Metformin Er Gastric] 1,000 MG Tabergr24h) PO SCH (21:00)
[2022-04-19] MEDS ORDERED: ROSUVASTATIN 10 MG TAB PO SCH (21:00)
[2022-04-20] MEDS: Ringers Lactate 1,000 ML IV SCH ×3 (01:10→08:00)
[2022-04-20] MEDS: ONDANSETRON 4 MG (ODT) TAB PO PRN (06:17)
[2022-04-20] MEDS: MORPHINE 2 MG/ML SYR IV PRN (06:17)
[2022-04-20 07:05] LABS: Potassium 3.9 mmol/L (3.5-5.1)
[2022-04-20 07:14] LABS: Absolute Lymphocytes (CBC) 1.2 K/uL (0.7-4.9); Hematocrit 33.9 % (36.0-45.0); Lymphocytes % 14.3 % (15.3-44.8); MCV 82.2 fL (80-100); MPV 8.9 fL (7.6-11.3); RBC Red Blood Cell Count 4.13 M/uL (3.86-4.86)
[2022-04-20] MEDS: INSULIN -REGULAR HUMAN 50 UNIT/0.5 ML ML SQ SCH (07:30)
[2022-04-20] MEDS ORDERED: METFORMIN ER 500 MG TAB PO SCH (08:00)
[2022-04-20] MEDS ORDERED: PANTOPRAZOLE 40MG TABLET PO SCH (09:00)
[2022-04-20] MEDS ORDERED: HOME MED 1 EA UNK (Potassium Citrate [Potassium] 99 MG Capsule) PO SCH (09:00)
[2022-04-20] MEDS ORDERED: HOME MED 1 EA UNK (Rabeprazole Sodium [Rabeprazole Sodium] 20 MG Tablet.Dr) PO SCH (09:00)
[2022-04-20] MEDS ORDERED: FUROSEMIDE 40 MG TABLET PO SCH (09:00)
[2022-04-20] MEDS ORDERED: GABAPENTIN 300 MG CAP PO SCH (09:00)
[2022-04-20] MEDS ORDERED: HOME MED 1 EA UNK (Linagliptin [Tradjenta] 5 MG Tablet) PO SCH (09:00)
[2022-04-20] MEDS ORDERED: HOME MED 1 EA UNK (Losartan Potassium [Losartan Potassium] 100 MG Tablet) PO SCH (09:00)
[2022-04-20] MEDS ORDERED: LOSARTAN POTASSIUM 50 MG TABLET PO SCH (09:00)
[2022-04-20 09:59] VITALS: BP 117/58; TEMP 97.8
== END 2022-04-20 10:08 | disposition home or self-care (01) ==
LOC: OR 10:58 → 4TH 15:52
PROVIDERS: ADMIT Obstetrics & Gynecology; ATTEND Obstetrics & Gynecology
PROC: 0JUC0JZ Supplement of Pelvic Region Subcutaneous Tissue and Fascia with Synthetic Substitute, Open Approach (ICD-10-PCS; 2022-04-19)
PROC: 0UQF0ZZ Repair Cul-de-sac, Open Approach (ICD-10-PCS; 2022-04-19)
PROC: 0TSD0ZZ Reposition Urethra, Open Approach (ICD-10-PCS; 2022-04-19)
PROC: 0HQ9XZZ Repair Perineum Skin, External Approach (ICD-10-PCS; 2022-04-19)
PROC: 0USG7ZZ Reposition Vagina, Via Natural or Artificial Opening (ICD-10-PCS; principal; 2022-04-19 12:15)
DX: N81.3 Complete uterovaginal prolapse (principal); N81.81 Perineocele; N39.3 Stress incontinence (female) (male); Z20.822 Contact with and (suspected) exposure to COVID-19; Z23 Encounter for immunization
CPT/HCPCS: 85025 ×2; 81001; 80048 ×2; 36415 ×3; 86900; 86850; 85610; 86901; 82947 ×5; 85730; 94010; 87811; 57282; 57250; 57267; 57288; J2704; J1815 ×2; J2001; Q0162 ×3; J3010; J1100; J2270 ×2; A4216; J7120 ×2; J7030; J2405; J0690 ×2; G0378; G0379

== ENCOUNTER → 2022-05-23 | Day surgery (SDC) | payer OTHER ==
--- NOTE | 2022-05-23 11:15 | RAD REPORT ---
EXAM DESCRIPTION: Ultrasound-guided vacuum assisted right breast core biopsy CLINICAL HISTORY: Breast mass R92.8 COMPARISON: Fluoroscopy <1 Hour dated 03/15/2022 FINDINGS: Informed consent was obtained and time-out was performed. The patient's right breast was prepped and draped in the usual sterile fashion. 1% lidocaine was used for local anesthetic purposes. Utilizing aseptic technique and ultrasound guidance, a 12 gauge vacuum assisted core biopsy device wa s used to obtain 2 core specimens through the mass of interest periareolar 1 cm lesion just lateral t o the nipple. A post biopsy clip was then placed. All collected material was sent for cytology. Patient tolerated procedure well. IMPRESSION: Successful ultrasound guided vacuum assisted right breast mass biopsy.
== END ==
LOC: DS 09:25
PROVIDERS: ATTEND Nurse Practitioner Women's Health
DX: N64.1 Fat necrosis of breast (principal); N61.0 Mastitis without abscess
CPT/HCPCS: 19083; 88305

== ENCOUNTER 2024-01-28 11:17 | Emergency (ER) | payer OTHER ==
[2024-01-28] MEDS ORDERED: CYCLOBENZAPRINE 10 MG TAB ONE (12:49)
[2024-01-28] MEDS ORDERED: KETOROLAC 30 MG/ML INJ ONE (12:49)
--- NOTE | 2024-01-28 13:26 | RAD REPORT ---
EXAMINATION: XR RIGHT SHOUDLER CLINICAL INDICATION: Female, 73 years old. PAIN RIGHT TECHNIQUE: Multiple views of the right shoulder were obtained. COMPARISON: No prior exam. FINDINGS: No acute fracture or dislocation. Prominent acromial spur.
--- NOTE | 2024-01-28 13:26 | RAD REPORT ---
EXAMINATION: XR RIGHT KNEE CLINICAL INDICATION: Female, 73 years old. PAIN TECHNIQUE: Multiple views of the right knee were obtained. COMPARISON: No prior exam. FINDINGS: No bone or joint abnormality seen.
--- NOTE | 2024-01-28 13:35 | EDPHYS ---
Physician Documentation [facility] Name: Khari Cannon Age: 73 yrs Sex: Female : 1950 Arrival Date: 01/28/2024 Time: 11:17 Bed 10 Private MD: ED Physician Michael Kiran HPI: 01/27 11:42 This 73 yrs old Female presents to ER via Ambulatory with complaints of Fall Injury. [facility] 11:42 73-year-old female with past medical history of hypertension, HLD, and diabetes jh7 presents to the ER for right shoulder and knee pain due to a fall that occurred on 01/11. She reports that she saw her PCP then but they did not perform x-rays. She states that she has an MRI scheduled on February 12, but has been in pain and not yet received an x-ray. She reports that the fall was due to slipping and that she is experiencing right posterior shoulder pain radiating up the side of her neck. Also reports that her right knee is bruised and that it does not feel normal.. Historical: - Allergies: 11:42 No Known Allergies; cm10 - PMHx: 11:42 Diabetes mellitus; Hypertensive disorder; Hypercholesterolemia; cm10 - Immunization history:: Adult Immunizations up to date. - Infectious Disease History:: Denies. - Social history:: Smoking status: unknown. ROS: 11:42 Constitutional: Per HPI jh7 Exam: 11:42 Constitutional: This is a well developed, well nourished patient who is awake, alert, jh7 and in no acute distress. Head/Face: Normocephalic, atraumatic. Neck: Trachea midline, no thyromegaly or masses palpated, and no cervical lymphadenopathy. Supple, full range of motion without nuchal rigidity, or vertebral point tenderness. No Meningismus. Cardiovascular: Regular rate and rhythm with a normal S1 and S2. No gallops, murmurs, or rubs. Normal PMI, no JVD. No pulse deficits. Respiratory: Lungs have equal breath sounds bilaterally, clear to auscultation and percussion. No rales, rhonchi or wheezes noted. No increased work of breathing, no retractions or nasal flaring. Abdomen/GI: Soft, non-tender, with normal bowel sounds. No distension or tympany. No guarding or rebound. No evidence of tenderness throughout. Back: No spinal tenderness. No costovertebral tenderness. Full range of motion. Skin: Warm, dry with normal turgor. Normal color with no rashes, no lesions, and no evidence of cellulitis. Neuro: Awake and alert, GCS 15, oriented to person, place, time, and situation. Sensory grossly intact. Normal gait. 11:42 Musculoskeletal/extremity: Extremities: noted in the right shoulder: decreased ROM, pain, noted in the right knee: contusion, pain, ROM: limited active range of motion due to pain, in the right shoulder, Circulation is intact in all extremities. Sensation intact. Vital Signs: 11:40 BP 147 / 87; Pulse 84; Resp 16; Temp 98.4; Pulse Ox 98% on R/A; Pain 6/10; cm10 11:40 Pain Scale: Adult cm10 MDM: 11:25 Medical Screening Exam initiated [facility] 13:36 Differential diagnosis: contusion, fracture, sprain, strain. Data reviewed: vital [facility] signs, nurses notes, radiologic studies, plain films. I considered the following discharge prescriptions or medication management in the emergency department Medications were administered in the Emergency Department. See MAR. Independent interpretation of the following test(s) in the Emergency Department X-Ray: My interpretation is no acute fractures. Historians other than the Patient: Spouse/Significant Other: . Care significantly affected by the following chronic conditions: Diabetes, Hypertension. Counseling: I had a detailed discussion with the patient and/or guardian regarding the historical points, exam findings, and any diagnostic results supporting the discharge/admit diagnosis, the need for outpatient follow up, a orthopedic surgeon, to return to the emergency department if symptoms worsen or persist or if there are any questions or concerns that arise at home. Response to treatment: There is no appreciated change of the patient's symptoms at this time, pain still the same. Special discussion: Have MRI done on February 12 as scheduled. 01/27 11:47 Order name: XRAY Shoulder RIGHT 2 view; Complete Time: 13:34 [facility] 01/27 11:47 Order name: XRAY Knee RIGHT 3 view; Complete Time: 13:34 [facility] Administered Medications: 12:54 Drug: Ketorolac IM 30 mg IM once Route: IM; Site: left gluteus; cm10 12:54 Drug: Cyclobenzaprine PO 5 mg PO once Route: PO; cm10 Disposition Summary: 01/28/24 13:35 Discharge Ordered Notes: Location: Home [facility] Problem: new [facility] Symptoms: are unchanged [facility] Condition: Stable [facility] Diagnosis - Other sprain of right shoulder joint [facility] - Contusion of right knee [facility] Followup: [facility] - With: Private Physician - When: 2 - 3 days - Reason: Recheck today's complaints Discharge Instructions: - Discharge Summary Sheet [facility] - Contusion [facility] - Shoulder Sprain [facility] Forms: - Medication Reconciliation Form [facility] - Patient Portal Instructions [facility] - Leadership Thank You Letter [facility] Prescriptions: - Naprosyn 500 mg Oral Tablet - take 1 tablet ORAL route 2 times per day take with food; 30 tablet; Refills: 0, [facility] Product Selection Permitted - Zanaflex 4 mg Oral Tablet - take 1 tablet ORAL route every 8 hours As needed; 20 tablet; Refills: 0, jh7 Product Selection Permitted Signatures: Dispatcher [employer] Delia Torres, QUALITY MANAGER QUALITY MANAGER [facility] Belinda Schrader RN RN cm10
--- NOTE | 2024-01-28 13:35 | ER ---
Nurse's Notes [facility] Name: Khari Cannon Age: 73 yrs Sex: Female : 1950 Arrival Date: 01/28/2024 Time: 11:17 Bed 10 Private MD: Diagnosis: Other sprain of right shoulder joint;Contusion of right knee Presentation: 01/27 11:40 Chief complaint: Patient states: Had a fall on Jan 11 and has been having increasing cm10 pain to right shoulder. Pt states that she has an MRI on Feb 12. Pt also complaining of right knee pain. Coronavirus screen: Client denies travel out of the [place] in the last 14 days. Ebola Screen: Patient denies travel to an Ebola-affected area in the 21 days before illness onset. No symptoms or risks identified at this time. Initial Sepsis Screen: Does the patient meet any 2 criteria? No. Patient's initial sepsis screen is negative. Does the patient have a suspected source of infection? No. Patient's initial sepsis screen is negative. Risk Assessment: Do you want to hurt yourself or someone else? Patient reports no desire to harm self or others. Onset of symptoms was January 12, 2024. 11:40 Method Of Arrival: Ambulatory cm10 11:40 Acuity: CAESAR 4 cm10 Triage Assessment: 11:42 General: Appears in no apparent distress. comfortable, Behavior is calm, cooperative. cm10 Neuro: No deficits noted. Level of Consciousness is awake, alert, obeys commands, Oriented to person, place, time, situation, Appropriate for age. Respiratory: No deficits noted. Airway is patent Respiratory effort is even, unlabored, Respiratory pattern is regular, symmetrical. Historical: - Allergies: 11:42 No Known Allergies; cm10 - PMHx: 11:42 Diabetes mellitus; Hypertensive disorder; Hypercholesterolemia; cm10 - Immunization history:: Adult Immunizations up to date. - Infectious Disease History:: Denies. - Social history:: Smoking status: unknown. Vital Signs: 11:40 BP 147 / 87; Pulse 84; Resp 16; Temp 98.4; Pulse Ox 98% on R/A; Pain 6/10; cm10 11:40 Pain Scale: Adult cm10 ED Course: 11:22 Patient arrived in ED. mg5 11:24 Delia Levine FNP is PHCP. 7 11:25 Michael Kiran MD is Attending Physician. jh7 11:42 Triage completed. cm10 11:43 Arm band placed on left wrist. Patient placed in an exam room, on a stretcher. cm10 13:17 XRAY Shoulder RIGHT 2 view In Process Unspecified. EDMS 13:17 XRAY Knee RIGHT 3 view In Process Unspecified. EDMS Administered Medications: 12:54 Drug: Ketorolac IM 30 mg IM once Route: IM; Site: left gluteus; cm10 12:54 Drug: Cyclobenzaprine PO 5 mg PO once Route: PO; cm10 Outcome: 13:35 Discharge ordered by . 7 14:03 Patient left the ED. Signatures: Dispatcher [employer] EDMS Latonya Isabel, RN RN Delia Levine FNP [employer] [facility] Belinda Schrader RN RN cm10 Fernanda Martin mg5
[2024-01-28 17:02] VITALS: BP 147/87; TEMP 98.4; O2SAT 98
== END 2024-01-28 14:03 | disposition home or self-care (01) ==
LOC: ER 11:17
DX: S43.491A Other sprain of right shoulder joint, initial encounter (principal); S80.01XA Contusion of right knee, initial encounter; W01.0XXA Fall on same level from slipping, tripping and stumbling without subsequent striking against object, initial encounter
CPT/HCPCS: 96372; 99284